=== PATIENT | female | born 1970 | race Caucasian/White ===

== ENCOUNTER 2023-02-19 07:22 | Outpatient (CLI) | payer OTHER, SELFPAY ==
--- NOTE | ~2023-02-19 | US_ITS ---
Limited Abdominal Sonogram: Real-time sonographic imaging of the right upper quadrant was performed. Clinical History: Pancreatitis Findings: The liver appears normal with no evidence of mass lesion or bile duct dilatation. Main por kori vein demonstrates normal direction of flow. The gallbladder is well distended, and appears normal with no evidence of gallstone or wall thickening. The common bile duct measures 4 mm. The visualize d pancreas, aorta, and IVC are unremarkable. Impression: No significant abnormality seen. Reviewed, dictated and finalized at location M. Impression: No significant abnormality seen.
== END 2023-02-19 07:23 | disposition home or self-care (01) ==
PROVIDERS: PCP Internal Medicine; Visit Provider Internal Medicine
DX: K85.90 Acute pancreatitis without necrosis or infection, unspecified (principal)
CPT/HCPCS: 76705

== ENCOUNTER 2023-12-17 10:03 | Outpatient (CLI) | payer BC, SELFPAY ==
--- NOTE | ~2023-12-17 | XR_ITS ---
Supine and upright views of the abdomen Clinical history: Kidney stones Findings: Bowel gas pattern is nonspecific. No evidence for obstruction or free air. No abnormal mass lesion or calcification is seen. Osseous structures are intact. Impression: No significant abnormality is seen. Reviewed, dictated and finalized at [facility]. AND [employer] Impression: No significant abnormality is seen.
== END 2023-12-17 10:04 | disposition home or self-care (01) ==
PROVIDERS: PCP Internal Medicine; Visit Provider Nurse Practitioner Family
DX: Z87.442 Personal history of urinary calculi (principal)
CPT/HCPCS: 74018

== ENCOUNTER 2024-01-28 16:57 | Outpatient (CLI) | payer BC, SELFPAY ==
--- NOTE | ~2024-01-28 | XR_ITS ---
Left Knee Technique: AP, lateral, and sunrise views were obtained. Clinical History: Pain Findings: No fracture or dislocation is seen. Osseous alignment is anatomic. Joint spaces are preserv ed without degenerative or erosive change. Soft tissues are unremarkable. No joint effusion is seen. Impression: Unremarkable left knee radiographs. Reviewed, dictated and finalized at location . INE GUNNER Impression: Unremarkable left knee radiographs.
== END 2024-01-28 16:58 | disposition home or self-care (01) ==
LOC: ANHIMG 16:58
PROVIDERS: PCP Internal Medicine; Visit Provider Orthopaedic Surgery
DX: M25.562 Pain in left knee (principal)
CPT/HCPCS: 73564

== ENCOUNTER 2025-01-28 09:48 | Outpatient (CLI) | payer OTHER, SELFPAY ==
--- NOTE | ~2025-01-28 | XR_ITS ---
XR abdomen/kub 1V Ordering provider: Gisela Rodriguez MD History: . Hx of kidney stones, KIDNEY STONE REMOVAL 04/2022 . Comparison: December 17, 2023 FINDINGS: BOWEL: Nonobstructive bowel gas pattern. ORGANOMEGALY: None. SIGNIFICANT PATHOLOGIC CALCIFICATIONS: None. OTHER: No free air is seen under the diaphragm. IMPRESSION: NO ACUTE ABDOMINAL FINDINGS. No definite stones seen. If still suspicious none contrast CT is advised. Reviewed, dictated and finalized at location A. ING COORDINATOR
--- OUTSIDE RECORDS SUMMARY | 2025-01-28 11:12 | XMS_ITS | Data Portability ---
Author Organization [facility] Address [address] [place] [address] Care Team Providers Care Wood Turner Name Role Phone JOVANNY KLEIN Primary Care Provider Unavailabl e Assessment Encounter Date Assessment Date Assessment LastModified by Organization Details LastModified Time 02/11/2024 02/11/2024 Try to get GLP-1 agent no contraindication walk is much as she can and caloric restriction. Blood pressure under good control keep hydrated for the history of renal stone consider going back on MetroGel for her rosacea rhinitis stable at this time obtain old records and see me in 4 months [email or web address] Not available 02/11/2024 23:14:39 06/10/2024 06/10/2024 gallbladder ultrasound morbid obesity healthy lifestyle care instructions medications we will continue I will see her back in 3 months consider dietary consult. I told her today because of her episodes of pancreatitis she is not a candidate for his bound Ozempic or any the GLP 1 agents at this time [email or web address] Not available 06/10/2024 21:18:16 2024 2024 he is to avoid a ll alcohol continue with her current medical strategies she will see me back in 4 months [email or web address] Not available 10/03/2024 22:14:22 12/16/2024 12/16/2024 continue current therapy focused on weight loss and decreasing processed food she was remained alcohol free and I have congratulated her on that blood work has been ordered as well as referrals and mammogram follow up with me in 4 months [email or web address] Not available 12/20/2024 16:55:30 Plan of Treatment Reminders Order Date Submit Date Provider Last Modified By Organization Details Last Modified Time Details Appointments ANY 15 2024 09:15A Nan Klein MD Not available Not available Not available Lab lipid panel, serum 2024 025 [facility], [address], [place], [address], 12/17/2024 08:22:54 CBC w/ auto diff 2024 025 [facility], [address], [place], [address], 12/17/2024 08:22:57 CMP, serum or plasma 2024 025 [facility], [address], [place], [address], 12/17/2024 08:22:56 noninva sive colorec kori cancer DNA + occult blood screeni ng, QL, stool 2023 024 [facility] (Cologuard Orders Only), [address], [address], [place], [address], 11/05/2024 21:28:20 HbA1c (hemogl obin A1c), blood 2023 024 [facility], [address], [place], [address], 02/12/2024 06:19:16 CMP, serum or plasma 2023 024 [facility], [address], [place], [address], 02/12/2024 06:19:16 CBC w/ auto diff 2023 024 [facility], [address], [place], [address], 02/12/2024 06:19:17 lipid panel, serum 2023 024 [facility], [address], [place], [address], 02/12/2024 06:19:15 TSH, ultra-s ensitiv e, serum 2023 024 [facility], [address], [place], [address], 02/12/2024 06:19:17 T3, free, serum or plasma 2023 024 [facility], [address], [place], [address], 02/12/2024 06:19:18 T4, free, serum 2023 024 [facility], [address], [place], [address], 02/12/2024 06:19:19 pap, IG + HPV, cervica l [address] [facility], [address], [address], [place], [address], 05/06/2018 14:11:53 FSH (follic le-stim ulating hormone ), serum 2017 018 [facility], [address], [place], [address], 05/01/2018 08:35:20 estradi ol, serum 2017 018 [facility], [address], [place], [address], 05/01/2018 08:35:21 TSH, ultra-s ensitiv e, serum 2017 018 [facility], [address], [place], [address], 05/01/2018 08:35:20 progest erone, serum 2017 018 [facility], [address], [place], [address], 05/01/2018 08:35:21 dhea-jack lfate, serum 2017 018 [facility] (Centralized Electronic Ordering - All Locations), Patient Can Go To The Location Of Their Choice, 05/01/2018 08:35:19 testost erone, total, serum 2017 018 [facility] (Centralized Electronic Ordering - All Locations), Patient Can Go To The Location Of Their Choice, 05/01/2018 08:35:19 HbA1c (hemogl obin A1c), blood 2017 018 [facility], [address], [address], [place], [address], 05/01/2018 08:35:18 CMP, serum or plasma 2017 018 [facility] (Centralized Electronic Ordering - All Locations), Patient Can Go To The Location Of Their Choice, 05/01/2018 08:35:17 lipid panel, serum 2017 018 [facility] (Centralized Electronic Ordering - All Locations), Patient Can Go To The Location Of Their Choice, 05/01/2018 08:35:18 Referral gynecol ogist referra l 2024 025 [facility]abel Baker (Ob), [address] [place] [address], [address], 01/27/2025 12:56:30 dermato logist referra l 2024 025 [facility], [address] [place] [address], [address], 01/27/2025 12:56:30 Procedures None recorde d. Surgeries None recorde d. Imaging MAMMO, screeni ng, digital , bilater al 2024 025 [facility] ([facility]), [address] [place], [address], 12/21/2024 09:35:28 US, abdomen 2023 024 [facility] ([facility]), [address] [place], [address], 06/18/2024 11:24:45 MAMMO, screeni lester, bilater al [email or web address] ([facility]), [address] [place], [address], 04/30/2018 17:32:06 Medication Orders Zepboun d 2.5 mg/0.5 mL subcuta neous pen injecto r 2023 024 [id number], [address] [place], [place], [id number], 06/10/2024 21:18:17 Calcium with Vitamin D 600 mg-10 mcg (400 unit) tablet 2017 018 [id number], [address] [place], [place], [id number], 02/11/2024 09:51:27 multivi tamin tablet 2017 018 [facility][id number], [address] [place], [place], [id number], 02/11/2024 09:51:33 norethi ndrone (contra ceptive ) 0.35 mg tablet 2017 018 [facility] #[id number], [address] [place], [place], [id number], 02/11/2024 09:51:44 nystati n 100,000 unit/gr am topical cream 2017 018 [id number] [address] [place], [place], [id number], 02/11/2024 09:51:47 Patient TargetsNo targets recorded. Patient Instructions Encounter Date Encounter Id Patient Instructions Last Modified By Organization Details Last Modified Time 04/30/2018 [id number] mammogram: about this test jo ann Not available 04/30/2018 17:00:08 learning about menopause [email or web address] Not available 04/30/2018 17:20:07 When You Want to Lose Weight: Care Instructions [email or web address] Not available 04/30/2018 16:42:09 06/10/2024 [id number] A healthy lifestyle: care instructions [email or web address] Not available 06/10/2024 13:12:46 12/16/2024 [id number] A healthy lifestyle: care instructions [email or web address] Not available 12/16/2024 15:05:24 Reason for Referral Law Tutor Referral for S kin lesion Referring Physician: Jovanny Klein, Internal Medicine, Encounter Date: 12/16/2024 Tower Foreman Referral for Gy necologic examination Referring Physician: Jovanny Klein, Internal Medicine, Encounter Date: 12/16/2024 Results Created Date Observation Date Name Description Value Unit Range Abnormal Flag Note LastModifiedBy Organization Detail LastModifiedTime 04/30/20 18 05/01/2018 CMP, serum or plasm a glucose 105 mg/dL 65-99 above high normal Not Available [facility] ([facility]) [address] [place], [address], 05/01/2018 08:35:17 04/30/20 18 05/01/2018 CMP, serum or plasm a BUN 14 mg/dL 6-24 Not Available [facility] ([facility]) [address] [place], [address], 05/01/2018 08:35:17 04/30/20 18 05/01/2018 CMP, serum or plasm a creatinine 0.94 mg/dL 0.57-1 .00 Not Available [facility] ([facility]) [address] [place], [address], 05/01/2018 08:35:17 04/30/20 18 05/01/2018 CMP, serum or plasm a eGFR if nonafricn AM 73 mL/mi n/1.7 3 >59 Not Available [facility] ([facility]) [address] [place], [address], 05/01/2018 08:35:17 04/30/20 18 05/01/2018 CMP, serum or plasm a eGFR if africn AM 84 mL/mi n/1.7 3 >59 Not Available [facility] ([facility]) [address] [place], [address], 05/01/2018 08:35:17 04/30/20 18 05/01/2018 CMP, serum or plasm a BUN/creatini ne ratio 15 9-23 Not Available [facility] ([facility]) [address] [place], [address], 05/01/2018 08:35:17 04/30/20 18 05/01/2018 CMP, serum or plasm a sodium 141 mmol/ L 134-14 4 Not Available [facility] ([facility]) [address] [place], [address], 05/01/2018 08:35:17 04/30/20 18 05/01/2018 CMP, serum or plasm a potassium 4.3 mmol/ L 3.5-5. 2 Not Available [facility] ([facility]) [address] [place], [address], 05/01/2018 08:35:17 04/30/20 18 05/01/2018 CMP, serum or plasm a chloride 102 mmol/ L 96-106 Not Available [facility] ([facility]) [address] [place], [address], 05/01/2018 08:35:17 04/30/20 18 05/01/2018 CMP, serum or plasm a carbon dioxide, total 26 mmol/ L Eff ectiv e May 05, 2018 Carbo n Dioxi de, Total refer ence inter narseen will be humphrey ing to: Age Male Femal e 0 days - 30 days 16 - 29 16 - 29 31 days - 1 year 15 - 25 15 - 25 2 years - 5 years 17 - 26 17 - 26 6 years - 12 years 19 - 27 19 - 27 >12 years 20 - 29 20 - 29 Not Available [facility] ([facility]) [address] [place], [address], 05/01/2018 08:35:17 04/30/20 18 05/01/2018 CMP, serum or plasm a calcium 9.2 mg/dL 8.7-10 .2 Not Available [facility] ([facility]) [address] [place], [address], 05/01/2018 08:35:17 04/30/2005/01/2018 CMP, serum or plasm a protein, total 7.1 g/dL 6.0-8. 5 Not Available [facility] ([facility]) [address] [place], [address], 05/01/2018 08:35:17 04/30/2005/01/2018 CMP, serum or plasm a albumin 4.3 g/dL 3.5-5. 5 Not Available [facility] ([facility]) [address] [place], [address], 05/01/2018 08:35:17 04/30/2005/01/2018 CMP, serum or plasm a globulin, total 2.8 g/dL 1.5-4. 5 Not Available [facility] ([facility]) [address] [place], [address], 05/01/2018 08:35:17 04/30/2005/01/2018 CMP, serum or plasm a A/G ratio 1.5 1.2-2. 2 Not Available [facility] ([facility]) [address] [place], [address], 05/01/2018 08:35:17 04/30/20 18 05/01/2018 CMP, serum or plasm a bilirubin, total 0.3 mg/dL 0.0-1. 2 Not Available [facility] ([facility]) [address] [place], [address], 05/01/2018 08:35:17 04/30/20 18 05/01/2018 CMP, serum or plasm a alkaline phosphatase 101 IU/L 39-117 Not Available [facility] ([facility]) [address] [place], [address], 05/01/2018 08:35:17 04/30/20 18 05/01/2018 CMP, serum or plasm a AST (SGOT) 22 IU/L 0-40 Not Available [facility] ([facility]) [address] [place], [address], 05/01/2018 08:35:17 04/30/20 18 05/01/2018 CMP, serum or plasm a ALT (SGPT) 19 IU/L 0-32 Not Available [facility] ([facility]) [address] [place], [address], 05/01/2018 08:35:17 04/30/20 18 05/01/2018 lipid panel , serum cholesterol, total 189 mg/dL 100-19 9 Not Available [facility] ([facility]) [address] [place], [address], 05/01/2018 08:35:17 04/30/20 18 05/01/2018 lipid panel , serum triglyceride s 172 mg/dL 0-149 above high normal Not Available [facility] ([facility]) [address] [place], [address], 05/01/2018 08:35:17 04/30/20 18 05/01/2018 lipid panel , serum HDL cholesterol 53 mg/dL >39 Not Available [facility] ([facility]) [address] [place], [address], 05/01/2018 08:35:17 04/30/20 18 05/01/2018 lipid panel , serum VLDL cholesterol lauryn 34 mg/dL 5-40 Not Available [facility] ([facility]) [address] [place], [address], 05/01/2018 08:35:17 04/30/20 18 05/01/2018 lipid panel , serum LDL cholesterol calc 102 mg/dL 0-99 above high normal Not Available [facility] ([facility]) [address] [place], [address], 05/01/2018 08:35:17 04/30/20 18 05/01/2018 lipid panel , serum comment: DISTRICT ASSOCIATE JUDGE Not Available [facility] ([facility]) [address] [place], [address], 05/01/2018 08:35:17 04/30/20 18 05/01/2018 lipid panel , serum LDL/HDL ratio 1.9 ratio 0.0-3. 2 LDL/H DL Ratio Men Women 1/2 Avg.R isk 1.0 1.5 Avg.R isk 3.6 3.2 2X Avg.R isk 6.2 5.0 3X Avg.R isk 8.0 6.1 Not Available [facility] ([facility]) [address] [place], [address], 05/01/2018 08:35:17 04/30/20 18 05/01/2018 HbA1c (hemo globi n A1c), blood hemoglobin A1C 5.4 % 4.8-5. 6 Pre-d iabet es: 5.7 - 6.4 Diabe pierce: >6.4 Glyce antonietta contr ol for adult s with diabe pierce: <7.0 Not Available [facility] ([facility]) [address] [place], [address], 05/01/2018 08:35:18 04/30/20 18 05/01/2018 dhea- sulfa te, serum DHEA-sulfate 229.7 ug/dL 41.2-2 43.7 Not Available [facility] ([facility]) [address] [place], [address], 05/01/2018 08:35:19 04/30/20 18 05/01/2018 testo stero ne, total , serum testosterone , serum 31 NG/dL 8-48 Not Available [facility] ([facility]) [address] [place], [address], 05/01/2018 08:35:19 04/30/2005/01/2018 TSH, ultra -sens itive , serum TSH 1.560 uIU/m L 0.450- 4.500 Not Available [facility] ([facility]) [address] [place], [address], 05/01/2018 08:35:20 04/30/2005/01/2018 FSH (foll icle- stimu latin g hormo ne), serum FSH 7.5 mIU/m L Adult Femal e: Folli cular phase 3.5 - 12.5 Ovula tion phase 4.7 - 21.5 Lutea l phase 1.7 - 7.7 Postm enopa usal 25.8 - 134.8 Not Available [facility] ([facility]) [address] [place], [address], 05/01/2018 08:35:20 04/30/2005/01/2018 estra diol, serum estradiol 68.2 pg/mL Adult Femal e: Folli cular phase 12.5 - 166.0 Ovula tion phase 85.8 - 498.0 Lutea l phase 43.8 - 211.0 Postm enopa usal <6.0 - 54.7 Pregn mando 1st trime ster 215.0 - >4300 .0 Girls (1-10 years ) 6.0 - 27.0 Perico ECLIA metho dolog y Not Available [facility] ([facility]) [address], [place], [address], 05/01/2018 08:35:21 04/30/20 18 05/01/2018 proge stero ne, serum progesterone 0.2 NG/mL Folli cular phase 0.1 - 0.9 Lutea l phase 1.8 - 23.9 Ovula tion phase 0.1 - 12.0 Pregn ant First trime ster 11.0 - 44.3 Secon d trime ster 25.4 - 83.3 Third trime ster 58.7 - 214.0 Postm enopa usal 0.0 - 0.1 Not Available [facility] ([facility]) [address], [place], [address], 05/01/2018 08:35:21 04/30/20 18 05/05/2018 pap, IG + HPV, cervi lauryn HPV aptima Negati ve negati ve This test detec ts fourt een high- risk HPV types (16/1 8/31/ 33/35 /39/4 5/ 51/52 /56/5 8/59/ 66/68 ) witho ut diffe renti ation . Not Available [facility] ([facility]) [address], [place], [address], 05/06/2018 14:11:53 04/30/20 18 05/06/2018 pap, IG + HPV, cervi lauryn diagnosis: Commen t NEGAT TOBY FOR INTRA EPITH ELIAL NEGRITA Soliz AND BERNADETTE KRAFT . THIS SPECI MEN WAS RESCR EENED PART OF OUR QUALI TY CONTR OL PROGR AM. Not Available [facility] ([facility]) [address], [place], [address], 05/06/2018 14:11:53 04/30/20 18 05/06/2018 pap, IG + HPV, cervi lauryn specimen adequacy: Commen t Satis facto ry for evalu ation . Endoc ervic al and/o r squam ous metap lasti c cells (endo cervi lauryn compo nent) are prese nt. Not Available [facility] ([facility]) [address], [place], [address], 05/06/2018 14:11:53 04/30/20 18 05/06/2018 pap, IG + HPV, cervi lauryn clinician provided ICD10: Landon joseph Z01.4 19 E28.2 N95.9 Not Available [facility] ([facility]) [address] [place], [address], 05/06/2018 14:11:53 04/30/20 18 05/06/2018 pap, IG + HPV, cervi lauryn performed by: Landon Mccoy , Cytot echno logis t (ASCP ) Not Available [facility] ([facility]) [address] [place], [address], 05/06/2018 14:11:53 04/30/20 18 05/06/2018 pap, IG + HPV, cervi lauryn QC reviewed by: Landon bonilla, Yadira visor y Cytot echno logis t (ASCP ) Not Available [facility] ([facility]) [address] [place], [address], 05/06/2018 14:11:53 04/30/20 18 05/06/2018 pap, IG + HPV, cervi lauryn . . Not Available [facility] ([facility]) [address] [place], [address], 05/06/2018 14:11:53 04/30/20 18 05/06/2018 pap, IG + HPV, cervi lauryn note: Landon joseph The Pap smear is a scree sal test desig roberto to aid in the detec tion of wes ligna nt and malig nant condi tions of the uteri ne cervi x. It is not a diagn ostic proce dure and shoul d not be used as the sole means of detec ting cervi lauryn cance r. Both false -posi tive and false -nega tive repor ts do occur . Not Available [facility] ([facility]) [address] [facility], [place], [address], 05/06/2018 14:11:53 04/30/20 18 05/06/2018 pap, IG + HPV, cervi lauryn test methodology: TNP The Thin Prep( R) Image r was unabl e to read this speci men. There fore a manua l revie w was perfo rmed. Not Available [facility] ([facility]) [address], [place], [address], 05/06/2018 14:11:53 05/10/20 21 05/10/2021 pap, IG + HR HPV Pap, thinprep,HPV negati ve Not Available Not Available 10:31:20 07/19/20 22 07/19/2022 CBC W Auto Diffe renti al panel - Blood mean platelet volume mean plate let volum e Not Available Not Available 01/27/2025 12:56:00 07/19/20 22 07/19/2022 CBC W Auto Diffe renti al panel - Blood white blood cells white blood cells Not Available Not Available 01/27/2025 12:56:00 07/19/20 22 07/19/2022 CBC W Auto Diffe renti al panel - Blood red blood cells red blood cells Not Available Not Available 01/27/2025 12:56:00 07/19/20 22 07/19/2022 CBC W Auto Diffe renti al panel - Blood hemoglobin hemog lobin Not Available Not Available 01/27/2025 12:56:00 07/19/20 22 07/19/2022 CBC W Auto Diffe renti al panel - Blood hematocrit hemat ocrit Not Available Not Available 01/27/2025 12:56:00 07/19/20 22 07/19/2022 CBC W Auto Diffe renti al panel - Blood mean red cell volume mean red cell volum e Not Available Not Available 01/27/2025 12:56:00 07/19/20 22 07/19/2022 CBC W Auto Diffe renti al panel - Blood mean red cell hemoglobin mean red cell hemog lobin Not Available Not Available 01/27/2025 12:56:00 07/19/20 22 07/19/2022 CBC W Auto Diffe renti al panel - Blood mean RBC HGB concentratio n mean RBC HGB yeimi ntrat ion Not Available Not Available 01/27/2025 12:56:00 07/19/20 22 07/19/2022 CBC W Auto Diffe renti al panel - Blood red cell distribution width red cell distr ibuti on width Not Available Not Available 01/27/2025 12:56:00 07/19/20 22 07/19/2022 CBC W Auto Diffe renti al panel - Blood platelets plate lets Not Available Not Available 01/27/2025 12:56:00 07/19/20 22 07/19/2022 CBC W Auto Diffe renti al panel - Blood neutrophils neutr ophil s Not Available Not Available 01/27/2025 12:56:00 07/19/20 22 07/19/2022 CBC W Auto Diffe renti al panel - Blood lymphocytes lymph ocyte s Not Available Not Available 01/27/2025 12:56:00 07/19/20 22 07/19/2022 CBC W Auto Diffe renti al panel - Blood monocytes monoc ytes Not Available Not Available 01/27/2025 12:56:00 07/19/20 22 07/19/2022 CBC W Auto Diffe renti al panel - Blood eosinophils high eosin ophil s Not Available Not Available 01/27/2025 12:56:00 07/19/20 22 07/19/2022 CBC W Auto Diffe renti al panel - Blood basophils basop hils Not Available Not Available 01/27/2025 12:56:00 07/19/20 22 07/19/2022 CBC W Auto Diffe renti al panel - Blood immature granulocytes immat ure granu locyt es Not Available Not Available 01/27/2025 12:56:00 07/19/20 22 07/19/2022 CBC W Auto Diffe renti al panel - Blood neutrophils, absolute count neutr ophil s, absol squaxin count Not Available Not Available 01/27/2025 12:56:00 07/19/20 22 07/19/2022 CBC W Auto Diffe renti al panel - Blood lymphocytes, absolute count lymph ocyte s, absol squaxin count Not Available Not Available 01/27/2025 12:56:00 07/19/20 22 07/19/2022 CBC W Auto Diffe renti al panel - Blood monocytes, absolute count monoc ytes, absol squaxin count Not Available Not Available 01/27/2025 12:56:00 07/19/20 22 07/19/2022 CBC W Auto Diffe renti al panel - Blood eosinophils, absolute count high eosin ophil s, absol squaxin count Not Available Not Available 01/27/2025 12:56:00 07/19/20 22 07/19/2022 CBC W Auto Diffe renti al panel - Blood basophils, absolute count basop hils, absol squaxin count Not Available Not Available 01/27/2025 12:56:00 07/19/20 22 07/19/2022 CBC W Auto Diffe renti al panel - Blood immature granulocytes ,absolute immat ure granu locyt es,ab solut e Not Available Not Available 01/27/2025 12:56:00 07/19/20 22 07/19/2022 CBC W Auto Diffe renti al panel - Blood nucleated red blood cells nucle ated red blood cells Not Available Not Available 01/27/2025 12:56:00 07/19/20 22 07/19/2022 CBC W Auto Diffe renti al panel - Blood NRBC# NRBC# Not Available Not Availa ble 01/27/2025 12:56:00 07/19/20 22 07/19/2022 Compr ehens toby metab olic 1999 panel - Serum or Plasm a carbon dioxide carbo n dioxi de Not Available Not Available 01/27/2025 12:55:59 07/19/20 22 07/19/2022 Compr ehens toby metab olic 2000 panel - Serum or Plasm a sodium sodiu m Not Available Not Available 01/27/2025 12:55:59 07/19/20 22 07/19/2022 Compr ehens toby metab olic 2000 panel - Serum or Plasm a potassium potas sium Not Available Not Available 01/27/2025 12:55:59 07/19/20 22 07/19/2022 Compr ehens toby metab olic 2000 panel - Serum or Plasm a chloride chlor kenisha Not Available Not Available 01/27/2025 12:55:59 07/19/20 22 07/19/2022 Compr ehens toby metab olic 1999 panel - Serum or Plasm a anion gap low anion gap Not Available Not Available 01/27/2025 12:55:59 07/19/20 22 07/19/2022 Compr ehens toby metab olic 2000 panel - Serum or Plasm a glucose gluco se Not Available Not Available 01/27/2025 12:55:59 07/19/20 22 07/19/2022 Compr ehens toby metab olic 2000 panel - Serum or Plasm a BUN BUN Not Available Not Availa ble 01/27/2025 12:55:59 07/19/20 22 07/19/2022 Compr ehens toby metab olic 2000 panel - Serum or Plasm a creatinine creat inine Not Available Not Available 01/27/2025 12:55:59 07/19/20 22 07/19/2022 Compr ehens toby metab olic 1999 panel - Serum or Plasm a GFR 55 GFR Not Available Not Availa ble 01/27/2025 12:55:59 07/19/20 22 07/19/2022 Compr ehens toby metab olic 2000 panel - Serum or Plasm a alkaline phosphatase alkal ine phosp hatas e Not Available Not Available 01/27/2025 12:55:59 07/19/20 22 07/19/2022 Compr ehens toby metab olic 2000 panel - Serum or Plasm a alanine aminotransfe rase nadia ne amino trans feras e Not Available Not Available 01/27/2025 12:55:59 07/19/20 22 07/19/2022 Compr ehens toby metab olic 2000 panel - Serum or Plasm a aspartate aminotransfe rase aspar poe amino trans feras e Not Available Not Available 01/27/2025 12:55:59 07/19/20 22 07/19/2022 Compr ehens toby metab olic 2000 panel - Serum or Plasm a bilirubin, total bilir ubin, total Not Available Not Available 01/27/2025 12:55:59 07/19/20 22 07/19/2022 Compr ehens toby metab olic 2000 panel - Serum or Plasm a calcium calci um Not Available Not Available 01/27/2025 12:55:59 07/19/20 07/19/2022 Compr ehens toby metab olic 1999 panel - Serum or Plasm a total protein total prote in Not Available Not Available 01/27/2025 12:55:59 07/19/20 22 07/19/2022 Compr ehens toby metab olic 1999 panel - Serum or Plasm a albumin album in Not Available Not Available 01/27/2025 12:55:59 07/19/20 22 07/19/2022 Compr ehens toby metab olic 1999 panel - Serum or Plasm a globulin globu nicole Not Available Not Available 01/27/2025 12:55:59 07/19/20 22 07/19/2022 Compr ehens toby metab olic 1999 panel - Serum or Plasm a A/G ratio A/G ratio Not Available Not Available 01/27/2025 12:55:59 07/19/20 22 07/19/2022 Lipid 1995 panel - Serum or Plasm a cholesterol in LDL [mass/volume ] in serum or plasma LDL carmen stero l, calcu lated Not Available Not Available 01/27/2025 12:55:59 07/19/20 22 07/19/2022 Lipid 1996 panel - Serum or Plasm a cholesterol high carmen stero l Not Available Not Available 01/27/2025 12:55:59 07/19/20 22 07/19/2022 Lipid 1996 panel - Serum or Plasm a triglyceride s high trigl yceri florence Not Available Not Available 01/27/2025 12:55:59 07/19/20 22 07/19/2022 Lipid 1996 panel - Serum or Plasm a HDL cholesterol HDL carmen stero l Not Available Not Available 01/27/2025 12:55:59 05/24/20 23 05/24/2023 Thyro tropi n [Unit s/vol ume] in Serum or Plasm a thyroid-stim ulating hormone thyro id-st imula ting hormo ne Not Available Not Available 01/27/2025 12:56:00 05/24/20 23 05/24/2023 Thyro xine (T4) free [Mass /volu me] in Serum or Plasm a free T4 free T4 Not Available Not Available 01/27/2025 12:56:00 05/24/20 23 05/24/2023 Triio dothy alton e (T3) Free [Mass /volu me] in Serum or Plasm a free T3 free T3 Not Available Not Available 01/27/2025 12:56:00 05/24/20 23 05/24/2023 Lipid 1995 panel - Serum or Plasm a cholesterol carmen stero l Not Available Not Available 01/27/2025 12:56:00 05/24/20 23 05/24/2023 Lipid 1995 panel - Serum or Plasm a triglyceride s trigl yceri florence Not Available Not Available 01/27/2025 12:56:00 05/24/20 23 05/24/2023 Lipid 1995 panel - Serum or Plasm a HDL cholesterol HDL carmen stero l Not Available Not Available 01/27/2025 12:56:00 05/24/20 23 05/24/2023 Lipid 1995 panel - Serum or Plasm a cholesterol in LDL [mass/volume ] in serum or plasma LDL carmen stero l, calcu lated Not Available Not Available 01/27/2025 12:56:00 05/24/20 23 05/24/2023 Compr ehens toby metab olic 1999 panel - Serum or Plasm a sodium sodiu m Not Available Not Available 01/27/2025 12:56:00 05/24/20 23 05/24/2023 Compr ehens toby metab olic 2000 panel - Serum or Plasm a potassium potas sium Not Available Not Available 01/27/2025 12:56:00 05/24/20 23 05/24/2023 Compr ehens toby metab olic 2000 panel - Serum or Plasm a chloride chlor kenisha Not Available Not Available 01/27/2025 12:56:00 05/24/20 23 05/24/2023 Compr ehens toby metab olic 1999 panel - Serum or Plasm a carbon dioxide carbo n dioxi de Not Available Not Available 01/27/2025 12:56:00 05/24/20 23 05/24/2023 Compr ehens toby metab olic 2000 panel - Serum or Plasm a anion gap low anion gap Not Available Not Available 01/27/2025 12:56:00 05/24/20 23 05/24/2023 Compr ehens toby metab olic 2000 panel - Serum or Plasm a glucose gluco se Not Available Not Available 01/27/2025 12:56:00 05/24/20 23 05/24/2023 Compr ehens toby metab olic 2000 panel - Serum or Plasm a BUN BUN Not Available Not Availa ble 01/27/2025 12:56:00 05/24/20 23 05/24/2023 Compr ehens toby metab olic 2000 panel - Serum or Plasm a creatinine creat inine Not Available Not Available 01/27/2025 12:56:00 05/24/20 23 05/24/2023 Compr ehens toby metab olic 2000 panel - Serum or Plasm a GFR >60 GFR Not Available Not Availa ble 01/27/2025 12:56:00 05/24/20 23 05/24/2023 Compr ehens toby metab olic 2000 panel - Serum or Plasm a alkaline phosphatase alkal ine phosp hatas e Not Available Not Available 01/27/2025 12:56:00 05/24/20 23 05/24/2023 Compr ehens toby metab olic 2000 panel - Serum or Plasm a alanine aminotransfe rase nadia ne amino trans feras e Not Available Not Available 01/27/2025 12:56:00 05/24/20 23 05/24/2023 Compr ehens toby metab olic 2000 panel - Serum or Plasm a aspartate aminotransfe rase aspar poe amino trans feras e Not Available Not Available 01/27/2025 12:56:00 05/24/20 23 05/24/2023 Compr ehens toby metab olic 2000 panel - Serum or Plasm a bilirubin, total bilir ubin, total Not Available Not Available 01/27/2025 12:56:00 05/24/20 23 05/24/2023 Compr ehens toby metab olic 2000 panel - Serum or Plasm a calcium calci um Not Available Not Available 01/27/2025 12:56:00 05/24/20 23 05/24/2023 Compr ehens toby metab olic 2000 panel - Serum or Plasm a total protein total prote in Not Available Not Available 01/27/2025 12:56:00 05/24/20 23 05/24/2023 Compr ehens toby metab olic 2000 panel - Serum or Plasm a albumin album in Not Available Not Available 01/27/2025 12:56:00 05/24/20 23 05/24/2023 Compr ehens toby metab olic 1999 panel - Serum or Plasm a globulin globu nicole Not Available Not Available 01/27/2025 12:56:00 05/24/20 23 05/24/2023 Compr ehens toby metab olic 1999 panel - Serum or Plasm a A/G ratio A/G ratio Not Available Not Available 01/27/2025 12:56:00 05/24/20 23 05/24/2023 CBC W Auto Diffe renti al panel - Blood white blood cells white blood cells Not Available Not Available 01/27/2025 12:56:00 05/24/20 23 05/24/2023 CBC W Auto Diffe renti al panel - Blood red blood cells red blood cells Not Available Not Available 01/27/2025 12:56:00 05/24/20 23 05/24/2023 CBC W Auto Diffe renti al panel - Blood hemoglobin high hemog lobin Not Available Not Available 01/27/2025 12:56:00 05/24/20 23 05/24/2023 CBC W Auto Diffe renti al panel - Blood hematocrit high hemat ocrit Not Available Not Available 01/27/2025 12:56:00 05/24/20 23 05/24/2023 CBC W Auto Diffe renti al panel - Blood mean red cell volume mean red cell volum e Not Available Not Available 01/27/2025 12:56:00 05/24/20 23 05/24/2023 CBC W Auto Diffe renti al panel - Blood mean red cell hemoglobin mean red cell hemog lobin Not Available Not Available 01/27/2025 12:56:00 05/24/20 23 05/24/2023 CBC W Auto Diffe renti al panel - Blood mean RBC HGB concentratio n mean RBC HGB yeimi ntrat ion Not Available Not Available 01/27/2025 12:56:00 05/24/20 23 05/24/2023 CBC W Auto Diffe renti al panel - Blood red cell distribution width red cell distr ibuti on width Not Available Not Available 01/27/2025 12:56:00 05/24/20 23 05/24/2023 CBC W Auto Diffe renti al panel - Blood platelets plate lets Not Available Not Available 01/27/2025 12:56:00 05/24/20 23 05/24/2023 CBC W Auto Diffe renti al panel - Blood mean platelet volume mean plate let volum e Not Available Not Available 01/27/2025 12:56:00 05/24/20 23 05/24/2023 CBC W Auto Diffe renti al panel - Blood neutrophils neutr ophil s Not Available Not Available 01/27/2025 12:56:00 05/24/20 23 05/24/2023 CBC W Auto Diffe renti al panel - Blood lymphocytes lymph ocyte s Not Available Not Available 01/27/2025 12:56:00 05/24/20 23 05/24/2023 CBC W Auto Diffe renti al panel - Blood monocytes monoc ytes Not Available Not Available 01/27/2025 12:56:00 05/24/20 23 05/24/2023 CBC W Auto Diffe renti al panel - Blood eosinophils eosin ophil s Not Available Not Available 01/27/2025 12:56:00 05/24/20 23 05/24/2023 CBC W Auto Diffe renti al panel - Blood basophils basop hils Not Available Not Available 01/27/2025 12:56:00 05/24/20 23 05/24/2023 CBC W Auto Diffe renti al panel - Blood immature granulocytes immat ure granu locyt es Not Available Not Available 01/27/2025 12:56:00 05/24/20 23 05/24/2023 CBC W Auto Diffe renti al panel - Blood neutrophils, absolute count neutr ophil s, absol squaxin count Not Available Not Available 01/27/2025 12:56:00 05/24/20 23 05/24/2023 CBC W Auto Diffe renti al panel - Blood lymphocytes, absolute count lymph ocyte s, absol squaxin count Not Available Not Available 01/27/2025 12:56:00 05/24/20 23 05/24/2023 CBC W Auto Diffe renti al panel - Blood monocytes, absolute count monoc ytes, absol squaxin count Not Available Not Available 01/27/2025 12:56:00 05/24/20 23 05/24/2023 CBC W Auto Diffe renti al panel - Blood eosinophils, absolute count eosin ophil s, absol squaxin count Not Available Not Available 01/27/2025 12:56:00 05/24/20 23 05/24/2023 CBC W Auto Diffe renti al panel - Blood basophils, absolute count basop hils, absol squaxin count Not Available Not Available 01/27/2025 12:56:00 05/24/20 23 05/24/2023 CBC W Auto Diffe renti al panel - Blood immature granulocytes ,absolute immat ure granu locyt es,ab solut e Not Available Not Available 01/27/2025 12:56:00 05/24/20 23 05/24/2023 CBC W Auto Diffe renti al panel - Blood nucleated red blood cells nucle ated red blood cells Not Available Not Available 01/27/2025 12:56:00 05/24/20 23 05/24/2023 CBC W Auto Diffe renti al panel - Blood NRBC# NRBC# Not Available Not Availa ble 01/27/2025 12:56:00 02/11/20 24 02/12/2024 LIPID PANEL cholesterol, total 183 mg/dL 100-19 9 Not Available [facility] ([facility]) [address] [facility], [place], [address], 02/12/2024 06:19:15 02/11/20 24 02/12/2024 LIPID PANEL triglyceride s 110 mg/dL 0-149 Not Available [facility] ([facility]) [address] [facility], [place], [address], 02/12/2024 06:19:15 02/11/20 24 02/12/2024 LIPID PANEL HDL cholesterol 66 mg/dL >39 Not Available [facility] ([facility]) [address] [facility], [place], [address], 02/12/2024 06:19:15 02/11/20 24 02/12/2024 LIPID PANEL VLDL cholesterol lauryn 19 mg/dL 5-40 Not Available [facility] ([facility]) [address] [facility], [place], [address], 02/12/2024 06:19:15 02/11/20 24 02/12/2024 LIPID PANEL LDL chol calc ([facility]) 98 mg/dL 0-99 Not Available [facility] ([facility]) [address] [place], [address], 02/12/2024 06:19:15 02/11/20 24 02/12/2024 COMP. METAB OLIC PANEL (14) glucose 97 mg/dL 70-99 Not Available [facility] ([facility]) [address] [place], [address], 02/12/2024 06:19:16 02/11/20 24 02/12/2024 COMP. METAB OLIC PANEL (14) BUN 19 mg/dL 6-24 Not Available [facility] ([facility]) [address] [place], [address], 02/12/2024 06:19:16 02/11/20 24 02/12/2024 COMP. METAB OLIC PANEL (14) creatinine 0.79 mg/dL 0.57-1 .00 Not Available [facility] ([facility]) [address] [place], [address], 02/12/2024 06:19:16 02/11/20 24 02/12/2024 COMP. METAB OLIC PANEL (14) eGFR 90 mL/mi n/1.7 3 >59 Not Available [facility] ([facility]) [address] [place], [address], 02/12/2024 06:19:16 02/11/20 24 02/12/2024 COMP. METAB OLIC PANEL (14) BUN/creatini ne ratio 24 9-23 above high normal Not Available [facility] ([facility]) [address] [place], [address], 02/12/2024 06:19:16 02/11/20 24 02/12/2024 COMP. METAB OLIC PANEL (14) sodium 143 mmol/ L 134-14 4 Not Available [facility] ([facility]) [address] [place], [address], 02/12/2024 06:19:16 02/11/20 24 02/12/2024 COMP. METAB OLIC PANEL (14) potassium 4.5 mmol/ L 3.5-5. 2 Not Available [facility] ([facility]) [address] [place], [address], 02/12/2024 06:19:16 02/11/20 24 02/12/2024 COMP. METAB OLIC PANEL (14) chloride 106 mmol/ L 96-106 Not Available [facility] ([facility]) [address] [place], [address], 02/12/2024 06:19:16 02/11/20 24 02/12/2024 COMP. METAB OLIC PANEL (14) carbon dioxide, total 21 mmol/ L 20-29 Not Available [facility] ([facility]) [address] [facility] [place], [address], 02/12/2024 06:19:16 02/11/20 24 02/12/2024 COMP. METAB OLIC PANEL (14) calcium 9.7 mg/dL 8.7-10 .2 Not Available [facility] ([facility]) [address] [place], [address], 02/12/2024 06:19:16 02/11/20 24 02/12/2024 COMP. METAB OLIC PANEL (14) protein, total 6.9 g/dL 6.0-8. 5 Not Available [facility] ([facility]) [address] [facility] [place], [address], 02/12/2024 06:19:16 02/11/20 24 02/12/2024 COMP. METAB OLIC PANEL (14) albumin 4.0 g/dL 3.8-4. 9 Not Available [facility] ([facility]) [address] [facility] [place], [address], 02/12/2024 06:19:16 02/11/20 24 02/12/2024 COMP. METAB OLIC PANEL (14) globulin, total 2.9 g/dL 1.5-4. 5 Not Available [facility] ([facility]) [address] [place], [address], 02/12/2024 06:19:16 02/11/20 24 02/12/2024 COMP. METAB OLIC PANEL (14) A/G ratio 1.4 1.2-2. 2 Not Available [facility] ([facility]) [address] [place], [address], 02/12/2024 06:19:16 02/11/20 24 02/12/2024 COMP. METAB OLIC PANEL (14) bilirubin, total 0.5 mg/dL 0.0-1. 2 Not Available [facility] ([facility]) [address] [facility] [place], [address], 02/12/2024 06:19:16 02/11/20 24 02/12/2024 COMP. METAB OLIC PANEL (14) alkaline phosphatase 113 IU/L 44-121 Not Available [facility] ([facility]) [address] [facility] [place], [address], 02/12/2024 06:19:16 02/11/20 24 02/12/2024 COMP. METAB OLIC PANEL (14) AST (SGOT) 26 IU/L 0-40 Not Available [facility] ([facility]) [address] [facility] [place], [address], 02/12/2024 06:19:16 02/11/20 24 02/12/2024 COMP. METAB OLIC PANEL (14) ALT (SGPT) 23 IU/L 0-32 Not Available [facility] ([facility]) [address] [facility] [place], [address], 02/12/2024 06:19:16 03/19/20 24 02/11/2024 HEMOG LOBIN A1C hemoglobin A1C 5.5 % 4.8-5. 6 Predi abete s: 5.7 - 6.4 Diabe pierce: >6.4 Glyce antonietta contr ol for adult s with diabe pierce: <7.0 Not Available [facility] ([facility]) [address] [place], [address], 02/12/2024 06:19:16 02/11/20 24 02/12/2024 TSH TSH 1.770 uIU/m L 0.450- 4.500 Not Available [facility] ([facility]) [address] [place], [address], 02/12/2024 06:19:17 02/11/20 24 02/11/2024 CBC WITH DIFFE RENTI AL/PL ATELE T WBC 7.7 x10e3 /uL 3.4-10 .8 Not Available [facility] ([facility]) [address] [place], [address], 02/12/2024 06:19:17 02/11/20 24 02/11/2024 CBC WITH DIFFE RENTI AL/PL ATELE T RBC 4.48 x10e6 /uL 3.77-5 .28 Not Available [facility] ([facility]) [address] [place], [address], 02/12/2024 06:19:17 02/11/20 24 02/11/2024 CBC WITH DIFFE RENTI AL/PL ATELE T hemoglobin 14.6 g/dL 11.1-1 5.9 Not Available [facility] ([facility]) [address] [place], [address], 02/12/2024 06:19:17 02/11/20 24 02/11/2024 CBC WITH DIFFE RENTI AL/PL ATELE T hematocrit 43.1 % 34.0-4 6.6 Not Available [facility] ([facility]) [address] [facility], [place], [address], 02/12/2024 06:19:17 02/11/20 24 02/11/2024 CBC WITH DIFFE RENTI AL/PL ATELE T MCV 96 fL 79-97 Not Available [facility] ([facility]) [address] [facility], [place], [address], 02/12/2024 06:19:17 02/11/20 24 02/11/2024 CBC WITH DIFFE RENTI AL/PL ATELE T MCH 32.6 pg 26.6-3 3.0 Not Available [facility] ([facility]) [address] [facility], [place], [address], 02/12/2024 06:19:17 02/11/20 24 02/11/2024 CBC WITH DIFFE RENTI AL/PL ATELE T MCHC 33.9 g/dL 31.5-3 5.7 Not Available [facility] ([facility]) [address] [facility], [place], [address], 02/12/2024 06:19:17 02/11/20 24 02/11/2024 CBC WITH DIFFE RENTI AL/PL ATELE T RDW 13.0 % 11.7-1 5.4 Not Available [facility] ([facility]) [address] [facility], [place], [address], 02/12/2024 06:19:17 02/11/20 24 02/11/2024 CBC WITH DIFFE RENTI AL/PL ATELE T platelets 230 x10e3 /uL 150-45 0 Not Available [facility] ([facility]) [address] [facility], [place], [address], 02/12/2024 06:19:17 02/11/20 24 02/11/2024 CBC WITH DIFFE RENTI AL/PL ATELE T neutrophils 66 % notest ab. Not Available [facility] ([facility]) [address] [facility], [place], [address], 02/12/2024 06:19:17 02/11/20 24 02/11/2024 CBC WITH DIFFE RENTI AL/PL ATELE T lymphs 21 % notest ab. Not Available [facility] ([facility]) [address] [facility], [place], [address], 02/12/2024 06:19:17 02/11/20 24 02/11/2024 CBC WITH DIFFE RENTI AL/PL ATELE T monocytes 9 % notest ab. Not Available [facility] ([facility]) [address] [facility], [place], [address], 02/12/2024 06:19:17 02/11/20 24 02/11/2024 CBC WITH DIFFE RENTI AL/PL ATELE T eos 3 % notest ab. Not Available [facility] ([facility]) [address] [place], [address], 02/12/2024 06:19:17 02/11/20 24 02/11/2024 CBC WITH DIFFE RENTI AL/PL ATELE T basos 1 % notest ab. Not Available [facility] ([facility]) [address] [facility], [place], [address], 02/12/2024 06:19:17 02/11/20 24 02/11/2024 CBC WITH DIFFE RENTI AL/PL ATELE T neutrophils (absolute) 5.1 x10e3 /uL 1.4-7. 0 Not Available [facility] ([facility]) [address] [place], [address], 02/12/2024 06:19:17 02/11/20 24 02/11/2024 CBC WITH DIFFE RENTI AL/PL ATELE T lymphs (absolute) 1.7 x10e3 /uL 0.7-3. 1 Not Available [facility] ([facility]) [address] [place], [address], 02/12/2024 06:19:17 02/11/20 24 02/11/2024 CBC WITH DIFFE RENTI AL/PL ATELE T monocytes(ab solute) 0.7 x10e3 /uL 0.1-0. 9 Not Available [facility] ([facility]) [address] [facility], [place], [address], 02/12/2024 06:19:17 02/11/20 24 02/11/2024 CBC WITH DIFFE RENTI AL/PL ATELE T eos (absolute) 0.2 x10e3 /uL 0.0-0. 4 Not Available [facility] ([facility]) [address] [place], [address], 02/12/2024 06:19:17 02/11/20 24 02/11/2024 CBC WITH DIFFE RENTI AL/PL ATELE T baso (absolute) 0.0 x10e3 /uL 0.0-0. 2 Not Available [facility] ([facility]) [address] [facility], [place], [address], 02/12/2024 06:19:17 02/11/20 24 02/11/2024 CBC WITH DIFFE RENTI AL/PL ATELE T immature granulocytes 0 % notest ab. Not Available [facility] ([facility]) [address] [facility], [place], [address], 02/12/2024 06:19:17 02/11/20 24 02/11/2024 CBC WITH DIFFE RENTI AL/PL ATELE T immature grans (abs) 0.0 x10e3 /uL 0.0-0. 1 Not Available [facility] ([facility]) [address] [place], [address], 02/12/2024 06:19:17 02/11/20 24 02/12/2024 TRIIO DOTHY ALTON E (T3), FREE triiodothyro nine (T3), free 2.8 pg/mL 2.0-4. 4 Not Available [facility] ([facility]) [address], [place], [address], 02/12/2024 06:19:18 02/11/20 24 02/12/2024 T4,FR EE(DI RECT) T4,free(dire ct) 1.34 NG/dL 0.82-1 .77 Not Available [facility] ([facility]) [address], [place], [address], 02/12/2024 06:19:19 10/31/20 24 10/31/2024 COLOG UARD cologuard result reportable NEGATI VE negati ve normal NEGAT TOBY TEST RESUL T. A negat toby Colog uard resul t indic ates a low likel ihood that a color ectal cance r (CRC) or advan scar adeno ma (slade [place] us polyp s with more advan scar pre-m align ant featu res) is prese nt. The [facility] emergency department e that a perso n with a negat toby Colog uard test has a color ectal cance r is less than 1 in 1500 (nega tive predi ctive value >99.9 %) or has an advan scar adeno ma is less than 5.3% (nega tive predi ctive value 94.7% ). These data are based on a prosp ectiv e cross -sect ional study of 10,00 0 indiv idual s at [place] [facility] risk for color ectal cance r who were scree roberto with both Colog uard and colon oscop y. (Trevor Parson et al, N Engl J Med 2014; 370(1 4):12 86-12 97) The sophy l value (refe rence range ) for this assay is negat toby. COLOG UARD RE-SC REENI NG RECOM MENDA TION: Perio dic color ectal cance r scree sal is an impor tant part of preve ntive healt hcare for asymp tomat ic indiv idual s at [facility] risk for color ectal cance r. Follo wing a negat toby Colog uard resul t, the Ameri can Cance r Socie ty and U.S. Multi -Soci ety Task Force scree sal guide lines recom mend a Colog uard re-sc adam batista inter nasreen of 3 years . Refer ences : Ameri can Cance r Socie ty Guide line for Color ectal Cance r Scree sal: https ://michelle w.can cer.o rg/ca ncer/ colon -rect al-ca ncer/ detec tion- diagn osis- stagi ng/ac s-rec ommen datio ns.ht ml.; Otto DK, Ruchi patterson CR, Almita ParksK, Color ectal Cance r Scree sal: Recom menda tions for Physi cians and Patie nts from the U.S. Multi -Soci ety Task Force on Color ectal Cance r Scree sal , Am Kasey mancilla rolog y 2017; 112:1 016-1 030. TEST DESCR IPTIO N: [place] site algor ithmi c reuben sis of stool DNA-b daljit calderon with hemog lobin immun oassa y. Quant itati ve value s of indiv idual bioma rkers are not repor table and are not assoc iated with indiv idual bioma rker resul t refer ence range s. Colog uard is inten ded for color ectal cance r scree sal of adult s of eithe r sex, 45 years or older , who are at [facility] for color ectal cance r (CRC) . Colog uard has been appro percy for use by the U.[place]. FDA. The perfo rmanc e of Colog uard was estab lishe d in a cross secti onal study of [facility] adult s aged 50-84 . Colog uard perfo rmanc e in patie nts ages 45 to 49 years was estim ated by deborah-g roup reuben sis of near- age group s. Colon oscop ies perfo rmed for a posit toby resul t may find as the most clini ro signi fican t lesio n: color ectal cance r [4.0% ], advan scar adeno ma (incl uding sessi le kylie renee polyp s great er than or equal to 1cm diame ter) [20%] or non- advan scar adeno ma [31%] ; or no color ectal neopl oscar [45%] . These estim ates are deriv ed from a prosp ectiv e cross -sect ional marcial huang study of 0 indiv idual s at [facility] risk for color ectal cance r who were scree roberto with both Colog uard and colon oscop y. (Trevor Parson et al, N Engl J Med 2014; 370(1 4):12 86-12 97.) Colog uard may produ ce a false negat toby or false posit toby resul t (no color ectal cance r or preca ncero us polyp prese nt at colon oscop y follo w up). A negat toby Colog uard test resul t does not guara ntee the absen ce of CRC or advan scar adeno ma (pre- cance r). The curre nt Colog uard sherleye sal inter nasreen is every 3 years . (Amer ican Cance r Socie ty and U.S. Multi -Soci ety Task Force ). Colog uard perfo rmanc e data in a 0 patie nt pivot al study using colon oscop y as the refer ence metho d can be [facility]es [facility] locat ion: www.e xactl abs.c om/re henrry . Addit ional descr iptio n of the Colog uard test proce ss, warni ngs and preca ution s can be found at www.c ologu ayush.c om. Not Available [employer] (Cologuard Orders Only) [address], [place], [address], 11/05/2024 21:28:20 12/16/19 25 12/17/2024 LIPID PANEL cholesterol, total 211 mg/dL 100-19 9 above high normal Not Available [facility] ([facility]) [address], [place], [address], 12/17/2024 08:22:54 12/16/19 25 12/17/2024 LIPID PANEL triglyceride s 109 mg/dL 0-149 Not Available [facility] ([facility]) [address] [place], [address], 12/17/2024 08:22:54 12/16/19 25 12/17/2024 LIPID PANEL HDL cholesterol 60 mg/dL >39 Not Available [facility] ([facility]) [address] [place], [address], 12/17/2024 08:22:54 12/16/19 25 12/17/2024 LIPID PANEL VLDL cholesterol lauryn 19 mg/dL 5-40 Not Available [facility] ([facility]) [address] [place], [address], 12/17/2024 08:22:54 12/16/19 25 12/17/2024 LIPID PANEL LDL chol calc ([facility]) 132 mg/dL 0-99 above high normal Not Available [facility] ([facility]) [address] [place], [address], 12/17/2024 08:22:54 12/16/19 25 12/17/2024 COMP. METAB OLIC PANEL (14) glucose 95 mg/dL 70-99 Not Available [facility] ([facility]) [address] [place], [address], 12/17/2024 08:22:55 12/16/19 25 12/17/2024 COMP. METAB OLIC PANEL (14) BUN 12 mg/dL 6-24 Not Available [facility] ([facility]) [address] [place], [address], 12/17/2024 08:22:55 12/16/19 25 12/17/2024 COMP. METAB OLIC PANEL (14) creatinine 0.86 mg/dL 0.57-1 .00 Not Available [facility] ([facility]) [address] [place], [address], 12/17/2024 08:22:55 12/16/19 25 12/17/2024 COMP. METAB OLIC PANEL (14) eGFR 81 mL/mi n/1.7 3 >59 Not Available [facility] ([facility]) [address] [facility], [place], [address], 12/17/2024 08:22:55 12/16/19 25 12/17/2024 COMP. METAB OLIC PANEL (14) BUN/creatini ne ratio 14 9-23 Not Available [facility] ([facility]) [address] [facility], [place], [address], 12/17/2024 08:22:55 12/16/19 25 12/17/2024 COMP. METAB OLIC PANEL (14) sodium 141 mmol/ L 134-14 4 Not Available [facility] ([facility]) [address] [facility], [place], [address], 12/17/2024 08:22:55 12/16/19 25 12/17/2024 COMP. METAB OLIC PANEL (14) potassium 5.0 mmol/ L 3.5-5. 2 Not Available [facility] ([facility]) [address] [facility], [place], [address], 12/17/2024 08:22:55 12/16/19 25 12/17/2024 COMP. METAB OLIC PANEL (14) chloride 102 mmol/ L 96-106 Not Available [facility] ([facility]) [address] [place], [address], 12/17/2024 08:22:55 12/16/19 25 12/17/2024 COMP. METAB OLIC PANEL (14) carbon dioxide, total 25 mmol/ L 20-29 Not Available [facility] ([facility]) [address] [facility], [place], [address], 12/17/2024 08:22:55 12/16/19 25 12/17/2024 COMP. METAB OLIC PANEL (14) calcium 9.9 mg/dL 8.7-10 .2 Not Available [facility] ([facility]) [address] [facility] [place], [address], 12/17/2024 08:22:55 12/16/19 25 12/17/2024 COMP. METAB OLIC PANEL (14) protein, total 7.2 g/dL 6.0-8. 5 Not Available [facility] ([facility]) [address] [facility] [place], [address], 12/17/2024 08:22:55 12/16/19 25 12/17/2024 COMP. METAB OLIC PANEL (14) albumin 4.2 g/dL 3.8-4. 9 Not Available [facility] ([facility] [address] [facility] [place], [address], 12/17/2024 08:22:55 12/16/19 25 12/17/2024 COMP. METAB OLIC PANEL (14) globulin, total 3.0 g/dL 1.5-4. 5 Not Available [facility] ([facility]) [address] [facility] [place], [address], 12/17/2024 08:22:55 12/16/19 25 12/17/2024 COMP. METAB OLIC PANEL (14) bilirubin, total 0.3 mg/dL 0.0-1. 2 Not Available [facility] ([facility]) [address] [place], [address], 12/17/2024 08:22:55 12/16/19 25 12/17/2024 COMP. METAB OLIC PANEL (14) alkaline phosphatase 107 IU/L 44-121 Not Available [facility] ([facility]) [address] [place], [address], 12/17/2024 08:22:55 12/16/19 25 12/17/2024 COMP. METAB OLIC PANEL (14) AST (SGOT) 21 IU/L 0-40 Not Available [facility] ([facility]) [address] [facility], [place], [address], 12/17/2024 08:22:55 12/16/19 25 12/17/2024 COMP. METAB OLIC PANEL (14) ALT (SGPT) 22 IU/L 0-32 Not Available [facility] ([facility]) [address] [facility], [place], [address], 12/17/2024 08:22:55 12/16/19 25 12/17/2024 CBC WITH DIFFE RENTI AL/PL ATELE T WBC 7.1 x10e3 /uL 3.4-10 .8 Not Available [facility] ([facility]) [address] [facility], [place], [address], 12/17/2024 08:22:57 12/16/19 25 12/17/2024 CBC WITH DIFFE RENTI AL/PL ATELE T RBC 5.10 x10e6 /uL 3.77-5 .28 Not Available [facility] ([facility]) [address] [facility], [place], [address], 12/17/2024 08:22:57 12/16/19 25 12/17/2024 CBC WITH DIFFE RENTI AL/PL ATELE T hemoglobin 15.9 g/dL 11.1-1 5.9 Not Available [facility] ([facility]) [address] [facility], [place], [address], 12/17/2024 08:22:57 12/16/19 25 12/17/2024 CBC WITH DIFFE RENTI AL/PL ATELE T hematocrit 46.5 % 34.0-4 6.6 Not Available [facility] ([facility]) [address] [place], [address], 12/17/2024 08:22:57 12/16/19 25 12/17/2024 CBC WITH DIFFE RENTI AL/PL ATELE T MCV 91 fL 79-97 Not Available [facility] ([facility]) [address] [facility], [place], [address], 12/17/2024 08:22:57 12/16/19 25 12/17/2024 CBC WITH DIFFE RENTI AL/PL ATELE T MCH 31.2 pg 26.6-3 3.0 Not Available [facility] ([facility]) [address] [facility], [place], [address], 12/17/2024 08:22:57 12/16/19 25 12/17/2024 CBC WITH DIFFE RENTI AL/PL ATELE T MCHC 34.2 g/dL 31.5-3 5.7 Not Available [facility] ([facility]) [address] [facility], [place], [address], 12/17/2024 08:22:57 12/16/19 25 12/17/2024 CBC WITH DIFFE RENTI AL/PL ATELE T RDW 12.5 % 11.7-1 5.4 Not Available [facility] ([facility]) [address] [place], [address], 12/17/2024 08:22:57 12/16/19 25 12/17/2024 CBC WITH DIFFE RENTI AL/PL ATELE T platelets 284 x10e3 /uL 150-45 0 Not Available [facility] ([facility]) [address] [place], [address], 12/17/2024 08:22:57 12/16/19 25 12/17/2024 CBC WITH DIFFE RENTI AL/PL ATELE T neutrophils 62 % notest ab. Not Available [facility] ([facility]) [address] [place], [address], 12/17/2024 08:22:57 12/16/19 25 12/17/2024 CBC WITH DIFFE RENTI AL/PL ATELE T lymphs 24 % notest ab. Not Available [facility] ([facility]) [address] [place], [address], 12/17/2024 08:22:57 12/16/19 25 12/17/2024 CBC WITH DIFFE RENTI AL/PL ATELE T monocytes 10 % notest ab. Not Available [facility] ([facility]) [address] [facility], [place], [address], 12/17/2024 08:22:57 12/16/19 25 12/17/2024 CBC WITH DIFFE RENTI AL/PL ATELE T eos 3 % notest ab. Not Available [facility] ([facility]) [address] [facility], [place], [address], 12/17/2024 08:22:57 12/16/19 25 12/17/2024 CBC WITH DIFFE RENTI AL/PL ATELE T basos 1 % notest ab. Not Available [facility] ([facility]) [address] [facility], [place], [address], 12/17/2024 08:22:57 12/16/19 25 12/17/2024 CBC WITH DIFFE RENTI AL/PL ATELE T neutrophils (absolute) 4.3 x10e3 /uL 1.4-7. 0 Not Available [facility] ([facility]) [address] [place], [address], 12/17/2024 08:22:57 12/16/19 25 12/17/2024 CBC WITH DIFFE RENTI AL/PL ATELE T lymphs (absolute) 1.7 x10e3 /uL 0.7-3. 1 Not Available [facility] ([facility]) [address] [place], [address], 12/17/2024 08:22:57 12/16/19 25 12/17/2024 CBC WITH DIFFE RENTI AL/PL ATELE T monocytes(ab solute) 0.7 x10e3 /uL 0.1-0. 9 Not Available [facility] ([facility]) [address] [facility], [place], [address], 12/17/2024 08:22:57 12/16/19 25 12/17/2024 CBC WITH DIFFE RENTI AL/PL ATELE T eos (absolute) 0.2 x10e3 /uL 0.0-0. 4 Not Available [facility] ([facility]) [address] [facility], [place], [address], 12/17/2024 08:22:57 12/16/19 25 12/17/2024 CBC WITH DIFFE RENTI AL/PL ATELE T baso (absolute) 0.0 x10e3 /uL 0.0-0. 2 Not Available [facility] ([facility]) [address] [facility], [place], [address], 12/17/2024 08:22:57 12/16/19 25 12/17/2024 CBC WITH DIFFE RENTI AL/PL ATELE T immature granulocytes 0 % notest ab. Not Available [facility] ([facility]) [address] [facility], [place], [address], 12/17/2024 08:22:57 12/16/19 25 12/17/2024 CBC WITH DIFFE RENTI AL/PL ATELE T immature grans (abs) 0.0 x10e3 /uL 0.0-0. 1 Not Available [facility] ([facility]) [address] [facility], [place], [address], 12/17/2024 08:22:57 05/13/20 24 05/13/2024 CT, abdom en + pelvi s, w/ contr ast No observ ation record ed. [facility] [address] [place], [address], 05/15/2024 12:23:35 05/24/20 24 05/23/2024 CT, abdom en + pelvi s, w/ contr ast No observ ation record ed. [facility] [address] [place], [address], 05/29/2024 13:48:21 06/18/20 24 06/18/2024 US, abdom en No observ ation record ed. TERRY [facility] [address] [place], [address], 06/25/2024 14:12:30 08/24/20 24 08/24/2024 CT, abdom en + pelvi s, w/ contr ast No observ ation record ed. [email or web address] [facility] [address] [place], [address], 08/25/2024 11:35:53 12/21/19 25 12/21/2024 MAMMO , scree sal, digit al, bilat eral No observ ation record ed. [email or web address] [facility] [address] [place], [address], 01/04/2025 09:42:13 Result Notes None recorded. Problems Name Problem SNOMED Code Status Onset Date Resolution Date Notes Provider Name and Address Organization Details Recorded Time Abdominal pain 92264414 Active 2023 Robyn Arriaga [place] null, [place] - [facility] 4 10:23:23 Essential hypertension 27517249 Active 2023 Robyn Arriaga [place], [place] [facility] 4 10:23:23 Rosacea 645864697 Active 2024 Jovanny Klein MD Attn: Keira pham,[address] [place], [address], [place] - [facility] 5 16:54:00 Hyperlipidemia 17981037 Active 2024 Jovanny Klein MD Attn: Keira pham,[address] [place], [address], [place] [facility] 5 16:54:06 Chronic rhinitis 35955703 Active 2024 Jovanny Klein MD Attn: Keira pham,[address] [facility], [place], [address], [place] [facility] 5 16:55:39 Morbid obesity 485094510 Active Robert Ashford RN BSN null, [place] - [facility] 5 10:29:03 Polycystic ovaries Active James Viveros MD Attn: Accountin g,[address] [facility], [place], [address], [facility] - [facility] 5 16:20:36 Irregular periods 57634729 Active Robert Ashford RN BSN null, [place] - [facility] 5 10:29:03 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 Procedures Surgical History Date Name Laterality Status Provider Name and Address Organization Details Recorded Time 04/30/20 18 Date of Last Pap Smear completed KEMI Keen [facility] 04/30/2018 16:27:23 03/25/20 17 Knee arthroscopy/surge ry completed KEMI Keen [facility] 04/30/2018 16:32:12 03/20/20 16 Most Recent Mammogram completed KEMI Keen [facility] 04/30/2018 16:27:44 11/25/19 12 Endometrial Ablation completed KEMI Daniels [facility] 03/08/2015 16:59:27 11/25/19 04 Breast Surgery completed KEMI Daniels 03/08/2015 16:59:27 11/25/19 03 Other completed KEMI Daniels [facility] 03/08/2015 16:59:27 11/25/19 00 Tubal Ligation completed Dunia KEMI Vivas [facility] 03/08/2015 16:59:27 11/25/18 76 Tonsillectomy completed Dunia KEMI Vivas [facility] 03/08/2015 16:59:27 Imaging Results Imaging Date Name Status LastModified by Organiz ation Details LastModified Time 05/13/2024 CT, abdomen + pelvis, w/ contrast completed [facility] [address] [place], [address], 05/15/2024 12:23:35 05/23/2024 CT, abdomen + pelvis, w/ contrast completed [facility] [address] [place], [address], 05/29/2024 13:48:21 06/18/2024 [facility] [address] [place], [address], 06/25/2024 14:12:30 08/24/2024 CT, abdomen + pelvis, w/ contrast completed [email or web address] [facility] [address] [place], [address], 08/25/2024 11:35:53 12/21/2024 MAMMO, screening, digital, bilateral completed [email or web address] [facility] [address] [place], [address], 01/04/2025 09:42:13 Procedure Notes None recorded. Medical Equipment None Reported. Allergies No known drug allergies Medications Name Sig Start Date Stop Date Status Note LastModified by Organization Details LastModified Time multivita min tablet Take 1 tablet every day by oral route. 02/10 completed Not Available Not Available Not Available azithromy dann 250 mg tablet TAKE 2 TABLETS BY MOUTH FOR 1 DAY THEN TAKE 1 TABLET BY MOUTH DAILY FOR 4 DAYS active Not Available Not Available No t Available ibuprofen 800 mg tablet 04/30 completed Not Available Not Available Not Available hydrocodo ne 5 mg-acetam inophen 325 mg tablet TAKE 1 TABLET BY MOUTH EVERY 6 HOURS NEEDED FOR PAIN active Not Available Not Available No t Available ondansetr on HCl 4 mg tablet TAKE 1 TABLET BY MOUTH EVERY 8 HOURS 12/20 completed Not Available Not Available Not Available Debrox 6.5 % ear drops Instill 5 drops twice a day by otic route for 4 days. 04/30 completed Not Available Not Available Not Available naproxen 250 mg tablet Take 1 tablet every day by oral route as needed. 02/10 completed For arthriti s Not Available Not Available Not Available sulfameth oxazole 800 mg-trimet hoprim 160 mg tablet 05/24 completed Not Available Not Available Not Available pantopraz ole 40 mg tablet,de layed release TAKE 1 TABLET BY MOUTH EVERY DAY 2024 active Not Available Not Available Not Avai lable simvastat in 20 mg tablet TAKE 1 TABLET BY MOUTH EVERY DAY 02/10 completed Not Available Not Available Not Available metformin 1,000 mg tablet TAKE 1 TABLET BY MOUTH TWICE DAILY 04/30 completed Not Available Not Available Not Available nystatin 100,000 unit/gram topical cream APPLY TO THE AFFECTED AREA(S) BY TOPICAL ROUTE 2 TIMES PER DAY 02/10 completed Not Available Not Available Not Available lisinopri l 10 mg tablet TAKE 1 TABLET BY MOUTH DAILY active Not Available Not Available No t Available monteluka st 10 mg tablet TAKE 1 TABLET BY MOUTH EVERY DAY active Not Available Not Available No t Available albuterol sulfate HFA 90 mcg/actua tion aerosol inhaler INHALE 2 PUFFS BY MOUTH EVERY 4 HOURS active Not Available Not Available No t Available norethind carla (contrace ptive) 0.35 mg tablet Take 1 tablet every day by oral route. 02/10 completed Not Available Not Available Not Available metronida zole 1 % topical gel active Not Available Not Available Not Available Calcium with Vitamin D 600 mg-10 mcg (400 unit) tablet Take 1 tablet twice a day by oral route. 02/10 completed Not Available Not Available Not Available Paxlovid 300 mg (150 mg x 2)-100 mg tablets in a dose pack TK 2 NIRMATRE LVIR TS AND 1 RITONAVI R T TOGETHER PO TWICE DAILY FOR 5 DAYS 02/10 completed Not Available Not Available Not Available Vitals Date Recorded Body weight Body mass index (BMI) Body height Systolic blood pressure Diastolic blood pressure Provider Name and Address Organization Details Last Updated DateTime 04/30/2018 369034.5 7 g 48.7 kg/m2 157.48 cm 136 mm[Hg] 88 mm[Hg] Ginette Blanca MA [facility] 8 16:35:32 Date Recorded Body height Body mass index (BMI) Body weight Oxygen saturation Oxygen saturation in Arterial blood by Pulse oximetry Heart rate Systolic blood pressure Diastolic blood pressure Provider Name and Address Organization Details Last Updated DateTime 4 157.48 cm 46.8 kg/m2 981278. 65 g 97 % 97 % 72 /min 124 mm[Hg] 85 mm[Hg] Ambrosio William MA [facility] 4 09:59:10 Date Recorded Body height Body mass index (BMI) Body weight Heart rate Oxygen saturation Oxygen saturation in Arterial blood by Pulse oximetry Systolic blood pressure Diastolic blood pressure Provider Name and Address Organization Details Last Updated DateTime 4 157.48 cm 44.9 kg/m2 024790. 65 g 73 /min 96 % 96 % 122 mm[Hg] 80 mm[Hg] Jenniffer Pena MA [facility] 4 09:48:56 Date Recorded Body height Body mass index (BMI) Body weight Heart rate Oxygen saturation Oxygen saturation in Arterial blood by Pulse oximetry Systolic blood pressure Diastolic blood pressure Provider Name and Address Organization Details Last Updated DateTime 4 157.48 cm 45.5 kg/m2 061901. 5 g 77 /min 97 % 97 % 128 mm[Hg] 80 mm[Hg] Ginette Moffett MA [facility] 4 10:03:56 Date Recorded Body height Body mass index (BMI) Body weight Heart rate Oxygen saturation Oxygen saturation in Arterial blood by Pulse oximetry Systolic blood pressure Diastolic blood pressure Provider Name and Address Organization Details Last Updated DateTime 5 157.48 cm 46.4 kg/m2 892300. 74 g 69 /min 96 % 96 % 126 mm[Hg] 86 mm[Hg] Kelly Beverly MA [place] - [facility] 12:21:18 Social History Question Answer Notes LastModified by Organizat ion Details LastModified Time Tobacco Smoking Status Never Smoker KEMI Daniels, [place] - [facility] 03/08/2015 16:59:26 Do You Have An Advance Directive? No Information not available 04/30/2018 What Is Your Level Of Alcohol Consumption? Occasional Information not available 04/30/2018 Are You Blind Or Do You Have Difficulty Seeing? No Information not available 02/11/2024 Is Blood Transfusion Acceptable In An Emergency? Yes Information not available 04/30/2018 What Is Your Level Of Caffeine Consumption? Moderate 1 Cup A Day Information not available 02/11/2024 How Much Tobacco Do You Chew? None Information not available 04/30/2018 In The 14 Days Before Symptom Onset, Have You Had Close Contact With A Laboratory-confir med COVID-19 While That Case Was Ill? No Information not available 12/16/2024 In The 14 Days Before Symptom Onset, Have You Had Close Contact With A Person Who Is Under Investigation For COVID-19 While That Person Was Ill? No Information not available 12/16/2024 Have You Been To An Area Known To Be High Risk For COVID-19? No Information not available 12/16/2024 Are You Currently Employed? Yes Information not available 04/30/2018 Are You Deaf Or Do You Have Serious Difficulty Hearing? No Information not available 02/11/2024 What Type Of Diet Are You Following? REGULAR Information not available 04/30/2018 Which Illicit Or Recreational Drugs Have You Used? None Information not available 04/30/2018 Education 4 Year College Informatio n not available 04/30/2018 What Is Your Occupation? [employer] Information not available 02/11/2024 What Was The Date Of Your Most Recent Tobacco Screening? 12/16/2024 Information not available 12/16/2024 How Many Children Do You Have? 2 Information not available 04/30/2018 Performs Monthly Self-breast Exam? Yes Information no t available 04/30/2018 Do You Use Protection During Sex? No Information not available 04/30/2018 What Is Your Relationship Status? Information not available 04/30/2018 Do You Use Your Seat Belt Or Car Seat Routinely? Yes Information not available 02/11/2024 Seat Belts Used Routinely Yes Information not available 04/30/2018 Are You Sexually Active? Yes Information not available 04/30/2018 Do You Have Smoke And Carbon Monoxide Detectors In Your Home? Yes Information not available 02/11/2024 General Stress Level Medium Information not available 04/30/2018 Do You Feel Stressed (tense, Restless, Nervous, Or Anxious, Or Unable To Sleep At Night)? [id number] Information not available 02/11/2024 Do You Use Any Illicit Or Recreational Drugs? No Information not available 02/11/2024 Do You Use Sunscreen Routinely? Yes Pt States Only On Face Information not available 04/30/2018 Has Tobacco Cessation Counseling Been Provided? No Information not available 02/11/2024 Do You Or Have You Ever Used Any Other Forms Of Tobacco Or Nicotine? No Information not available 02/11/2024 Sex: Female Functional Status Question Answer Note LastModified by Organizat ion Details LastModified Time Are you able to care for yourself? Yes Information not available 02/11/2024 What is your exercise level? Occasional Information not available 04/30/2018 Mental Status None recorded. Family History Relationship Description Onset Age of this Age Resolved Age Notes LastModified by Organization Details LastModified Time Maternal Grandmother Kidney disease 66 [email or web address] Not available 2014 10:30:49 Maternal Grandmother Diabetes mellitus mringor Not available 2014 10:30:49 Maternal Grandmother Hypertensive disorder mringor Not available 2014 10:30:49 Father Heart disease CVA mringor Not available 2014 10:30:49 Paternal Grandmother Heart disease mringor Not available 2014 10:30:49 Mother Pancreatitis mringor Not availa ble 05/24/2015 10:30:49 Medical History Condition Response Coronary Artery Disease N Other N Atrial Fibrillation N High Blood Pressure Y Breast Cancer N Lung Disease N Depression N COPD N Blood Clots N Breast Problem N Anesthesia Complications N Headaches/Migraines N Anxiety Disorder N Muscle, Joint, or Bone Problems N Arthritis N Infertility N Polyps N Acid Reflux (GERD) N Cancer N Stroke N Endometriosis N Liver Disease N Fibromyalgia N Headaches N Kidney Disease N Heart Problems N Thyroid Problems N Kidney or Bladder Problems Y GI Problems N Acne N Eating Disorder N Skin Problems N Anemia N Heart Attack (ND) N Diabetes N Ovarian Cancer N Blood Transfusions N Seizures/Epilepsy N Abuse/Domestic Violence N Asthma N Allergies N Hepatitis N Heart Disease N Pre-Eclampsia N Hypertension N Heart Failure N Osteoporosis N Gynecological History Statement/Question Response Abnormal Pap N On BCP's at Conception? N HPV Vaccine N Most Recent Mammogram 03/20/2016 Age at Menarche 14 Current Control Method Tubal Ligat ion Age at First Child 22 Frequency of Cycle (Q days) Sexually Active? Y Menses Monthly N Date of Last Pap Smear 04/30/2018 Sexual Problems? Y LMP Unknown Desired Control Method Other Obstetrics History GPAL:G 2 P 2 0 0 2 Type Value Multiple Births 0 Full Term 2 Induced 0 Spontaneous 0 Premature 0 Living 2 Ectopics 0 Total 2 Immunizations Vaccine Type Date Status Note Provider Nam e and Address Organization Details Recorded Time Influenza, split virus, quadrivalent, preservative 9 completed Kelly Beverly [place] null, [place] [facility] 12/16/2024 09:41:10 COVID-19, mRNA, LNP-S, PF, 100 mcg/0.5mL dose or 50 mcg/0.25mL dose 1 completed Kelly Beverly [place], [place] [facility] 12/16/2024 09:41:10 COVID-19, mRNA, LNP-S, PF, 100 mcg/0.5mL dose or 50 mcg/0.25mL dose 1 completed Kelly [place] [facility] 12/16/2024 09:41:10 COVID-19, mRNA, LNP-S, PF, 100 mcg/0.5mL dose or 50 mcg/0.25mL dose 1 completed [place]EMI [place] [facility] 12/16/2024 09:41:10 Influenza, high-dose, trivalent, PF 5 [place] [facility] 12/16/2024 09:41:10 Influenza, split virus, trivalent, preservative 3 [place] [facility] 12/16/2024 09:41:10 Td (adult), 2 Lf tetanus toxoid, preservative free, adsorbed 2 completed [place] [facility] 12/16/2024 09:41:10 pneumococcal polysaccharide PPV23 5 completed Not Available [facility] 12/12/2019 02:29:46 Tdap 5 completed Not Available [facility] 12/12/2019 02:45:32 pneumococcal polysaccharide PPV23 5 completed Jovanny Klein MD Attn: Accounting[address] [place], [address], [place] [facility] 12/20/2024 16:52:42 Past Encounters Encounter ID Performer Location Encounter Start Date Encounter Closed Date Diagnosis/Indication Diagnosis SNOMED-CT Code Diagnosis ICD10 Code Diagnosis Note [id number] Olivia ([employer]) [address] [place] [id number] 03/08/2015 16:00:34 03/08/2015 19:47:45 Morbid obesity 072408716 Polycystic ovaries 29545252 Irregular periods 54296025 Pt is s/p Novasure procedure and states that she had no menstrual period for approximat shayne 1.5 years after procedure. She is now having heavy periods with which she uses 36 pads/perio d. She is experienci ng polyuria as well as pelvic pain and pressure. She denies dyspareuni a but states she is experienci ng spotting 1 day after coitus. [id number] Lloyd Baker ([facility] [facility]) [address] [place] [id number] 04/20/2015 15:28:35 04/21/2015 09:28:49 Morbid obesity 304745803 Irregular periods 08667036 Pt is s/p Novasure procedure and states that she had no menstrual period for approximat shayne 1.5 years after procedure. She is now having heavy periods with which she uses 36 pads/perio d. She is experienci ng polyuria as well as pelvic pain and pressure. She denies dyspareuni a but states she is experienci ng spotting 1 day after coitus. Polycystic ovaries 80389295 Screening mammography 84629004 [id number] [facility] (Adult [facility]) [address] [place] [id number] 0 05/24/2015 10:10:25 05/24/2015 11:30:47 General examination of patient 336434043 44 y/o WF who presents to this office as a new patient Disorder o f lipid metabolism 188953446 History of pneumonia 558138554 CXR report from [facility] Repeat CXR to document resolution Overweight 165012784 Impacted cerumen 35896217 [id number] February KEMI Jay (Adult Med) [address] [place] [id number] 0 07/29/2015 16:02:30 07/29/2015 17:40:14 Polycystic ovaries 03687427 On Metformin Overweight 062235712 She has lost 29 lbs Her labs and CXR were all reviewed [id number] Lloyd Baker ([employer]) [address] [place] [id number] 04/14/2018 15:30:42 04/15/2018 17:57:47 [id number] Lloyd Baker ([employer]) [address] [place] [id number] 04/30/2018 15:33:26 04/30/2018 17:32:05 Gynecologic examination 24817219 Z01.419 Screening mammography 24 962480 Z12.31 Morbid obesity 397759148 E66.01 Perimenopa usal disorder 311004700 N95.9 Candidiasis of skin 4988 3006 B37.2 Polycystic ovaries 45938 008 E28.2 [id number] MD Olivia Whiting (Adult Med) [address] [place] [id number] 0 02/11/2024 09:38:36 02/11/2024 10:24:11 Essential hypertension 20219396 I10 Hyperlipidemia 04305046 E78.5 Obesity 145392387 E66.9 Overweight 811591680 E66 .3 Kidney stone 67005546 N2 0.0 [id number] MD Olivia Whiting (Adult Med) [address] [place] [id number] 0 06/10/2024 09:38:51 06/10/2024 10:24:35 Morbid obesity 854550646 E66.01 Essential hypertension 51125974 I10 Abdominal pain 54801397 R10.9 [id number] Jovanny Klein MD [facility] ([facility]ult [facility]) [address] [place] [id number] 0 2024 09:54:17 2024 10:39:40 Screening for malignant neoplasm of colon 042869849 Z12.11 Essential hypertension 63378086 I10 Disorder o f lipid metabolism 477053170 E78.9 [id number] Jovanny Klein MD [facility] (Adult Med) [address] [place] [id number] 0 12/16/2024 12:02:45 12/16/2024 12:45:37 Body mass index 40+ - severely obese 636356019 Z68.42 Morbid obesity 565757615 E66.01 Essential hypertension 44133408 I10 Screening mammography 24 872246 Z12.31 Skin lesion 59532043 L98 .9 Gynecologi c examination 36023149 Z01.419 Administra tion of pneumococcal vaccine 39563281 Z23 Rosacea 491599760 L71.9 Hyperlipidemia 42560100 E78.5 Health Concerns Section Related Observation LastModified by Organization Detai ls LastModified Time None Recorded Concern Status LastModified by Organization Details LastModified Time None Recorded Advance Directives Directive N: Payers Encounter Date Sequence Insurance Name Policy Number Policy Gunderson Covered Member ID Gunderson Member ID Guarantor Name 04/30/2018 1 [facility] [id number] Milagros Clark [id number] Milagros Clark 02/11/2024 2 [place] [id number] Milagros Clark [id number] Milagros Clark 06/10/2024 2 [place] [id number] Milagros Clark [id number] Milagros Clark 2024 2 [place] [id number] Milagros Clark [id number] Milagros Clark 2024 2 [place] [id number] Oh Clark [id number] Milagros Clark 12/16/2024 2 [place] [id number] Milagros Clark [id number] Milagros Clark 12/16/2024 1 [employer] - CHOICE (POS II) [id number] Oh Clark [id number] Milagros Clark Notes Date Note Type Note Provider Name and Address Organization Details Recorded Time 04/30/2018 text/html Annual GYNReport ed bypatient.History:no gynecologic complaints Menstrual cycle:Normal menses Urinary symptoms:No hematuria; No incontinence Vulva:No genital lesion Vagina:Normal vaginal discharge Breast:No breast pain; No breast lump; No nipple discharge Current Contraception:Tubal ligation Sexual complaints:No sexual complaints; No pain during intercourse; Normal libido Menopausal Symptoms:No menopausal symptoms; Normal vaginal lubrication Psychological symptoms:No depression; No anxiety; No PMDD Preventive measures:Encourage self breast examination; Encourage regular exercise; Encourage no tobacco use; Encourage regular mammograms starting age 40; Followed with Q3 year pap smear and high risk HPV typing; Needs to schedule mammogram 47y CF presents for occ therapist annual exam and also irregular periods after intercourse and loss of libido. Lloyd ingram, [facility] 05/01/2018 06:11:46 02/11/2024 text/html Hypertension no headache or dizziness rhinitis seems to be doing okay hyperlipidemia try to follow low-fat diet obesity trouble losing weight some knee pain following with Ortho Jovanny Klein MD Attn: [address] [place], [address], [facility] 02/11/2024 23:15:46 06/10/2024 text/html here for follow up of a couple of medical problems she was in the hospital for pancreatitis states that she is not drinking any alcohol had a CT scan did not show any gallstones sometimes some nausea no vomiting trouble losing weight blood pressure has been running okay Jovanny Klein MD Attn: [address]ing[address] , [place], [address], [place] [facility] 06/10/2024 21:18:36 2024 text/html some epigastric pain ER nonspecific findings on CT scan and blood work she has been doing better hypertension no headache or dizziness montelukast helping out on the rhinitis pantoprazole seems to be helping now with some epigastric discomfort Jovanny Klein MD Attn: Accounting[address], [place], [address], [place] [facility] 10/03/2024 22:15:32 12/16/2024 text/html hyperpigmented lesion on her face needs to see derm needs gynecology referral also a mammogram and a pneumococcal vaccine obesity she is not doing anything to lose weight hypertension blood pressure could do a little bit better on the diastolic side history of pancreatitis presumed secondary to alcohol she has stopped drinking. GERD no nausea no vomiting rhinitis stable on the Singulair rosacea control Jovanny Klein MD Attn: [address] , [place], [address], [place] - [facility] 12/20/2024 16:56:08 OBGyn Episode Ob Episode Information Episode Created Date Number of Fetuses Patient Bloodtype Patient rh Status Prepregnancy Weight lbs Domestic Partner Domestic Partner Phone Father Name Community Service Coordinator Status 10/03/20 24 1 DELETED Fetus Data First Name Last Name Admitted to NICU Weight (g) Sex Living Outcome Pediatric Complications Fetus ID Race Codes Race Delivery Type [id number] Faisal Calculation Initial Faisal Date Initial Exam Date Initial Exam Provider Initial Ultrasound Date Last Menstrual Period Date Ultra Sound Weeks Gestation 10/03/2024 0 Eighteen To Twenty Week Faisal Update Ultra Sound Date Fundal Height At Umbil Quickening Date Ultra Sound Latest Weeks Gestation Final Faisal Confirmed By Final Faisal Confirmed Date Final Faisal Date Ultra Sound Latest Days Gestation 0 0 Menstrual History Last Menstrual Date Menses Monthly On Bcp Conception Prior Menses Frequency Hcg Plus Date Menarche Onset Age Delivery Information Delivery Date Delivery Type Labor Anesthesia Weeks Gestation Incision Type Labor Labor Length Hrs Delivered By Post Complications Tubal Sterilization Discharge Date Comments Discharge Information Feeding Method Contraceptive Method Maternal HG B and HCT Levels
--- OUTSIDE RECORDS SUMMARY | 2025-01-28 11:12 | XMS_ITS | Patient Health Summary ---
Author Organization [facility] Address [address] [place] [address] Care Team Providers Care Heel Curver Name Role Phone Efren Klein MD Primary Care Provider Ravindra Almanzar MD Unavailable [phone] Note from [facility],non-owned Affiliates and Associated Physician Practices is amultiple site organization consisting of ambulatory clinics and hospital sitesin [place], [place], [place] and [place]. This disclosure is being madepursuant to the Care Everywhere program and may not contain all information available regarding this patient. Last updated 18.[facility] Allergies No known active allergies Medications * Be aware that medications may not be up to date on this document. Alwaysverify current medications with the patient. * metFORMIN (GLUCOPHAGE) 1000 MG tablet Take 1,000 mg by mouth 2 times daily with morning and evening meal * simvastatin (ZOCOR) 40 MG tablet Take 40 mg by mouth at bedtime * oxyCODONE-acetaminophen (PERCOCET) 5-325 MG tablet(Started 06/08/2016) Take 1 Tab by mouth every 4 hours as needed for Pain Social History Tobacco Use Types Packs/Day Years Used Date Smoking Tobacco: Never Smokeless Tobacco: Never Alcohol Use Standard Drinks/Week Comments Yes 0 (1 standard drink = 0.6 oz pur e alcohol) Sex and Gender Information Value Date Recorded Sex Assigned at Not on file Gender Identity Not on file Sexual Orientation Not on file Last Filed Vital Signs Vital Sign Reading Time Taken Comments Blood Pressure 128/88 10/23/2017 5:00 PM BURGLAR ALARM ASSEMBLER Pulse 72 10/23/2017 5:00 PM BURGLAR ALARM ASSEMBLER Temperature 36.3 C (97.3 F) 10/23/2017 5:00 PM BURGLAR ALARM ASSEMBLER Respiratory Rate 16 10/23/2017 5:00 PM BURGLAR ALARM ASSEMBLER Oxygen Saturation 96% 10/23/2017 5:00 PM BURGLAR ALARM ASSEMBLER Inhaled Oxygen Concentration - - Weight 113.4 kg (250 lb) 10/23/2017 5:00 PM BURGLAR ALARM ASSEMBLER Height 157.5 cm (5' 2 ) 10/23/2017 5:00 PM BURGLAR ALARM ASSEMBLER Body Mass Index 45.73 10/23/2017 5:00 PM BURGLAR ALARM ASSEMBLER Procedures * XR KNEE LEFT 4VW OR MORE(Performed 06/08/2016) Performed for Knee injury, left, initial encounter Results * XR KNEE 4+ VW LEFT (06/08/2016 5:20 PM CDT) Anatomical Region Laterality Modality Lower Extremity Radiographic Natalie ging 06/08/2016 5:23 PM CDT Narrative 06/08/2016 5:23 PM CDT Left knee 4 view History: Injury There is no evidence of fracture or dislocation or joint effusion Procedure Note Curt Gonzalez MD - 06/08/2016 Left knee 4 view History: Injury There is no evidence of fracture or dislocation or joint effusion Melvin Calvert DO DIAGNOSTIC IMAGING O [facility] Care Teams Heel Curver Relationship Specialty Start Date End Date Efren Klein MD PCP - General Internal Medicine 10/23/17 Ravindra Almanzar MD Internal Medicine 10/23/17
--- OUTSIDE RECORDS SUMMARY | 2025-01-28 11:12 | XMS_ITS | Referral Summary ---
Author Organization [facility] Address [address] [place] [address] Care Team Providers Care Pin Ball Machine Mechanic Name Role Phone Efren Klein MD Primary Care Provider [phone] Ravindra Almanzar MD Unavailable [phone] Source Comments [facility],non-owned Affiliates and Associated Physician Practices is amultiple site organization consisting of ambulatory clinics and hospital sitesin [place], [place], [place] and [place]. This disclosure is being madepursuant to the Care Everywhere program and may not contain all information available regarding this patient. Last updated 18.[facility] for; to (do) Centers Allergies No known active allergies Medications * Be aware that medications may not be up to date on this document. Alwaysverify current medications with the patient. Medication Sig Dispensed Refills Start Date End Date Status metFORMIN (GLUCOPHAGE) 1000 MG tablet Take 1,000 mg by mouth 2 times daily with morning and evening meal Active simvastatin (ZOCOR) 40 MG tablet Take 40 mg by mouth at bedtime Active oxyCODONE-acetaminophe n (PERCOCET) 5-325 MG tablet Take 1 Tab by mouth every 4 hours as needed for Pain 20 Tab 0 06/08/2016 Active Social History Tobacco Use Types Packs/Day Years [...] Comments Blood Pressure 128/88 10/23/2017 5:00 PM CLINICAL PROGRAM COORDINATOR Pulse 72 10/23/2017 5:00 PM CLINICAL PROGRAM COORDINATOR Temperature 36.3 C (97.3 F) 10/23/2017 5:00 PM CLINICAL PROGRAM COORDINATOR Respiratory Rate 16 10/23/2017 5:00 PM CLINICAL PROGRAM COORDINATOR Oxygen Saturation 96% 10/23/2017 5:00 PM CLINICAL PROGRAM COORDINATOR Inhaled Oxygen Concentration - - Weight 113.4 kg (250 lb) 10/23/2017 5:00 PM CLINICAL PROGRAM COORDINATOR Height 157.5 cm (5' 2 ) 10/23/2017 5:00 PM CLINICAL PROGRAM COORDINATOR Body Mass Index 45.73 10/23/2017 5:00 PM CLINICAL PROGRAM COORDINATOR Plan of Treatment Not on file Care Teams Pin Ball Machine Mechanic Relationship Specialty Start Date End Date Efren Klein MD PCP - General Internal Medicine 10/23/17 Ravindra Almanzar MD Internal Medicine 10/23/17
--- OUTSIDE RECORDS SUMMARY | 2025-01-28 11:12 | XMS_ITS | Clinical Summary ---
Author Organization [facility] [employer] Address [address] [place] [address] Care Team Providers Care Cold Reduction Roller Name Role Phone Efren Klein MD Primary Care Provider [phone] Ravindra Almanzar MD Unavailable [phone] [facility],non-owned Affiliates and Associated Physician Practices is amultiple site organization consisting of ambulatory clinics and hospital sitesin [place], [place], [place] and [place]. This disclosure is being madepursuant to the Care Everywhere program and may not contain all information available regarding this patient. Last updated 18.[facility] [employer] Allergies No known active allergies Medications * [...] Comments Blood Pressure 128/88 10/23/2017 5:00 PM GLUING CREW LEADER Pulse 72 10/23/2017 5:00 PM GLUING CREW LEADER Temperature 36.3 C (97.3 F) 10/23/2017 5:00 PM GLUING CREW LEADER Respiratory Rate 16 10/23/2017 5:00 PM GLUING CREW LEADER Oxygen Saturation 96% 10/23/2017 5:00 PM GLUING CREW LEADER Inhaled Oxygen Concentration - - Weight 113.4 kg (250 lb) 10/23/2017 5:00 PM GLUING CREW LEADER Height 157.5 cm (5' 2 ) 10/23/2017 5:00 PM GLUING CREW LEADER Body Mass Index 45.73 10/23/2017 5:00 PM GLUING CREW LEADER Plan of Treatment Health Maintenance Due Date Last Done Comments COLOGUARD (AGES 45-75) - COL ON CA SCREENING 1971 COLON MONITORING 1971 COLONOSCOPY - COLON CA SCREENING 1971 CT COLONOGRAPHY - COLON CA SCREENING 1971 Colorectal Cancer Screening 1971 FIT - COLON CA SCREENING 1971 FLEX SIG - COLON CA SCREENING 1971 MAMMOGRAM 1971 PAP SMEAR 1971 HIV SCREENING 1986 HEPATITIS C SCREENING 09/04/1989 DTAP/TDAP/TD VACCINES (1 - Tdap) 1990 HEPATITIS B VACCINE (1 of 3 - 19+ 3-dose series) 1990 SCREENING FOR DIABETES 10/23/2017 PNEUMOCOCCAL VACCINE 50+ (1 of 1 - PCV) 2021 ZOSTER VACCINE (1 of 2) 2021 COVID-19 VACCINE (1 - 2023-2 5 season) 2024 INFLUENZA VACCINE (#1) 2024 DEPRESSION SCREENING 11/25/2024 HIB VACCINE Aged Out No longer eligi ble based on patient's age to complete this topic HPV VACCINE Aged Out No longer eligi ble based on patient's age to complete this topic MENINGOCOCCAL (Group B) VACCINE Aged Out No longer eligible based on patient's age to complete this topic MENINGOCOCCAL VACCINE Aged Out No leslie garland eligible based on patient's age to complete this topic PNEUMOCOCCAL VACCINE Aged Out No long er eligible based on patient's age to complete this topic Care Teams Cold Reduction Roller Relationship Specialty Start Date End Date Efren Klein MD PCP - General Internal Medicine 10/23/17 Ravindra Almanzar MD Internal Medicine 10/23/17
--- OUTSIDE RECORDS SUMMARY | 2025-01-28 11:13 | XMS_ITS | Data Portability ---
Author Organization [place] [employer] Main Office Address [address] [place] [address] Assessment Encounter Date Assessment Date Assessment LastModified by Organization Details LastModified Time 02/14/2023 02/14/2023 We will disconti ede the hydrochlorothiazide she will only be on lisinopril as monotherapy for hypertension He has a gallbladder ultrasound to make sure there is no stones No alcohol which she says she has not been using Follow-up with me in 3 months Singulair for rhinitis [email or web address] Not available 02/14/2023 10:39:37 05/24/2023 05/24/2023 Dyslipidemia discussed watch red meat and saturated fat Impacted cerumen ear drops [id number] no better call for ENT consult Obesity reduced calorie Hypertension reduce salt Regular walking OBGYN referral for ovarian cyst and possible uterine fibroid Keep all appointments [email or web address] Not available 05/25/2023 15:58:31 Plan of Treatment Reminders Order Date Submit Date Provider Last Modified By Organization Details Last Modified Time Details Appointments None recorded. Lab None recorded. Referral None recorded. Procedures None recorded. Surgeries None recorded. Imaging None recorded. Medication Orders Singulair 10 mg tablet 2022 023 [id number] [facility] #[id number], [address] [place] [address], [place], [id number], 11:33:06 lisinopril 10 mg tablet 2022 023 [email or web address] [facility] #[id number] [place], [place], [id number], 11:33:06 Patient TargetsNo targets recorded. Patient InstructionsNo instructions recorded. Reason for Referral None Reported. Results Created Date Observation Date Name Description Value Unit Range Abnormal Flag Note LastModifiedBy Organization Detail LastModifiedTime 07/19/2007/19/2022 LIPID PANEL LDL cholesterol, calculated 85 mg/dL 0-130 NIH ANYI NSUS REPOR T RECOM MENDA TIONS FOR LDL: ADULT CHILD LOW RISK <130 <110 (OPTI MAL LDL) <100 ----- BORDE RLINE : 130-1 59 ----- HIGH RISK: >160 >130 A TRIGL YCERI DE RESUL T >400 INVAL IDATE S THE CALCU LATIO N FOR LDL FRACT IONAT ION - THE LDL RESUL T WILL NOT BE REPOR ANNETTE. Not Available [facility] (Lab) [address] [place], [address], 07/19/2022 18:24:44 07/19/20 22 07/19/2022 LIPID PANEL cholesterol 202 mg/dL 140-19 9 high NIH ANYI NSUS RECOM MENDA TION FOR MARTINE STERO L: ADULT CHILD LOW RISK: <200 <170 BORDE RLINE : <200- 239 ----- HIGH RISK: >240 >200 Not Available [facility] (Lab) [address] [place], [address], 07/19/2022 18:24:44 07/19/2007/19/2022 LIPID PANEL triglyceride s 266 mg/dL 0-150 high NIH ANYI NSUS REPOR T RECOM MENDA TION FOR TRIGL YCERI JEANNINE: ADULT CHILD LOW RISK: <150 ----- BODER LINE: 150-1 99 ----- HIGH RISK: >200 ----- Not Available [facility] (Lab) [address] [place], [address], 07/19/2022 18:24:44 07/19/2007/19/2022 LIPID PANEL HDL cholesterol 64 mg/dL 40- Not Available [facility] (Lab) [address] [place], [address], 07/19/2022 18:24:44 07/19/20 22 07/19/2022 COMPR EHENS TOBY METAB OLIC PANEL carbon dioxide 29 mmol/ L 22-30 Not Available [facility] (Lab) [address] [place], [address], 07/19/2022 18:24:39 07/19/20 22 07/19/2022 COMPR EHENS TOBY METAB OLIC PANEL sodium 137 mmol/ L 137-14 5 Not Available [facility] (Lab) [address] [place], [address], 07/19/2022 18:24:39 07/19/20 22 07/19/2022 COMPR EHENS TOBY METAB OLIC PANEL potassium 4.1 mmol/ L 3.5-5. 1 Not Available [facility] (Lab) [address] [place], [address], 07/19/2022 18:24:39 07/19/20 22 07/19/2022 COMPR EHENS TOBY METAB OLIC PANEL chloride 101 mmol/ L 98-107 Not Available [facility] (Lab) [address] [place], [address], 07/19/2022 18:24:39 07/19/20 22 07/19/2022 COMPR EHENS TOBY METAB OLIC PANEL anion gap 11.1 mmol/ L 14-22 low Not Available [facility] (Lab) [address] [place], [address], 07/19/2022 18:24:39 07/19/20 22 07/19/2022 COMPR EHENS TOBY METAB OLIC PANEL glucose 80 mg/dL 70-99 Not Available [facility] (Lab) [address] [place], [address], 07/19/2022 18:24:39 07/19/20 22 07/19/2022 COMPR EHENS TOBY METAB OLIC PANEL BUN 17 mg/dL 8-19 Not Available [facility] (Lab) [address] [place], [address], 07/19/2022 18:24:39 07/19/2007/19/2022 COMPR EHENS TOBY METAB OLIC PANEL creatinine 1.06 mg/dL 0.66-1 .25 Not Available [facility] (Lab) [address] [place], [address], 07/19/2022 18:24:39 07/19/20 22 07/19/2022 COMPR EHENS TOBY METAB OLIC PANEL GFR 55 Refer ence Range : [place] ge GFR Healt hy Adult : >60 mL/mi n/1.7 3 m2 Chron ic Kidne y Disea se: 15-60 mL/mi n/1.7 3 m2 Kidne y Failu re: <15/m L/min /1.73 m2 www.n iddk. nih.g ov The MDRD study equat ion has not been valid ated in child erika <18 years of age; pregn ant women ; the elder ly >85 years of age; or in some racia l or ethni c subgr oups, such as [facility] nics. Outsi de the valid ated pasquale eters , estim ated GFR is less accur ate, requi ring clini lauryn judgm ent on a case- by-ca se basis . Clini lauryn inter preta tion for other races and ages must be made by the clini radha. The MDRD study equat ion has not been valid ated for the evalu ation of serum creat inine relat ed to nutri gen l statu s or medic ation usage . For perso ns <18 years of age, a pedia tric GFR calcu lator is avail able on the [employer] websi te: https ://michelle w.nakul clements.o sherri/pr ofess ional s/kdo qi/gf r_cal culat or Not Available [facility] (Lab) [address] [place], [address], 07/19/2022 18:24:39 07/19/20 22 07/19/2022 COMPR EHENS TOBY METAB OLIC PANEL alkaline phosphatase 92 U/L 38-126 Not Available [facility] (Lab) [address] [place], [address], 07/19/2022 18:24:39 07/19/20 22 07/19/2022 COMPR EHENS TOBY METAB OLIC PANEL alanine aminotransfe rase 31 U/L 0-35 Not Available [facility] (Lab) [address] [place], [address], 07/19/2022 18:24:39 07/19/20 22 07/19/2022 COMPR EHENS TOBY METAB OLIC PANEL aspartate aminotransfe rase 35 U/L 15-37 Not Available [facility] (Lab) [address] [place], [address], 07/19/2022 18:24:39 07/19/20 22 07/19/2022 COMPR EHENS TOBY METAB OLIC PANEL bilirubin, total 0.80 mg/dL 0.20-1 .30 Not Available [facility] (Lab) [address] [place], [address], 07/19/2022 18:24:39 07/19/20 22 07/19/2022 COMPR EHENS TOBY METAB OLIC PANEL calcium 9.4 mg/dL 8.4-10 .2 Not Available [facility] (Lab) [address] [place], [address], 07/19/2022 18:24:39 07/19/20 22 07/19/2022 COMPR EHENS TOBY METAB OLIC PANEL total protein 7.0 g/dL 6.3-8. 2 Not Available [facility] (Lab) [address] [place], [address], 07/19/2022 18:24:39 07/19/20 22 07/19/2022 COMPR EHENS TOBY METAB OLIC PANEL albumin 4.3 g/dL 3.4-5. 0 Not Available [facility] (Lab) [address] [place], [address], 07/19/2022 18:24:39 07/19/20 22 07/19/2022 COMPR EHENS TOBY METAB OLIC PANEL globulin 2.7 g/dL 2.6-4. 2 Not Available [facility] (Lab) [address] [place], [address], 07/19/2022 18:24:39 07/19/20 22 07/19/2022 COMPR EHENS TOBY METAB OLIC PANEL A/G ratio 1.6 ratio 1.0-2. 0 Not Available [facility] (Lab) [address] [place], [address], 07/19/2022 18:24:39 07/19/20 22 07/19/2022 CBC/C OMPLE TE BLD COUNT W/DIF F mean platelet volume 9.8 fL 9.0-12 .4 Not Available [facility] (Lab) [address] [place], [address], 07/19/2022 17:40:07 07/19/20 22 07/19/2022 CBC/C OMPLE TE BLD COUNT W/DIF F white blood cells 7.8 x10'3 /uL 4.2-10 .8 Not Available [facility] (Lab) [address] [place], [address], 07/19/2022 17:40:07 07/19/20 22 07/19/2022 CBC/C OMPLE TE BLD COUNT W/DIF F red blood cells 4.46 x10'6 /uL 3.80-5 .20 Not Available [facility] (Lab) [address] [place], [address], 07/19/2022 17:40:07 07/19/20 22 07/19/2022 CBC/C OMPLE TE BLD COUNT W/DIF F hemoglobin 14.6 g/dL 12.0-1 5.6 Not Available [facility] (Lab) [address] [place], [address], 07/19/2022 17:40:07 07/19/20 22 07/19/2022 CBC/C OMPLE TE BLD COUNT W/DIF F hematocrit 43.3 % 35.7-4 5.7 Not Available [facility] (Lab) [address] [place], [address], 07/19/2022 17:40:07 07/19/20 22 07/19/2022 CBC/C OMPLE TE BLD COUNT W/DIF F mean red cell volume 97.1 fL 82.0-9 9.0 Not Available [facility] (Lab) [address] [place], [address], 07/19/2022 17:40:07 07/19/20 22 07/19/2022 CBC/C OMPLE TE BLD COUNT W/DIF F mean red cell hemoglobin 32.7 pg 27.0-3 3.0 Not Available [facility] (Lab) [address] [place], [address], 07/19/2022 17:40:07 07/19/20 22 07/19/2022 CBC/C OMPLE TE BLD COUNT W/DIF F mean RBC HGB concentratio n 33.7 g/dL 31.0-3 6.0 Not Available [facility] (Lab) [address] [place], [address], 07/19/2022 17:40:07 07/19/20 22 07/19/2022 CBC/C OMPLE TE BLD COUNT W/DIF F red cell distribution width 13.7 % 11.8-1 5.5 Not Available [facility] (Lab) [address] [place], [address], 07/19/2022 17:40:07 07/19/20 22 07/19/2022 CBC/C OMPLE TE BLD COUNT W/DIF F platelets 250 x10'3 /uL 150-40 0 Not Available [facility] (Lab) [address] [place], [address], 07/19/2022 17:40:07 07/19/20 22 07/19/2022 CBC/C OMPLE TE BLD COUNT W/DIF F neutrophils 51.9 % 39.0-7 2.0 Not Available [facility] (Lab) [address] [place], [address], 07/19/2022 17:40:07 07/19/20 22 07/19/2022 CBC/C OMPLE TE BLD COUNT W/DIF F lymphocytes 30.4 % 16.0-4 7.0 Not Available [facility] (Lab) [address] [place], [address], 07/19/2022 17:40:07 07/19/20 22 07/19/2022 CBC/C OMPLE TE BLD COUNT W/DIF F monocytes 9.6 % 5.0-12 .0 Not Available [facility] (Lab) [address] [place], [address], 07/19/2022 17:40:07 07/19/20 22 07/19/2022 CBC/C OMPLE TE BLD COUNT W/DIF F eosinophils 7.2 % 1.0-7. 0 high Not Available [facility] (Lab) [address] [place], [address], 07/19/2022 17:40:07 07/19/20 22 07/19/2022 CBC/C OMPLE TE BLD COUNT W/DIF F basophils 0.6 % 0.0-2. 0 Not Available [facility] (Lab) [address] [place], [address], 07/19/2022 17:40:07 07/19/20 22 07/19/2022 CBC/C OMPLE TE BLD COUNT W/DIF F immature granulocytes 0.3 % 0.00-0 .50 Not Available [facility] (Lab) [address] [place], [address], 07/19/2022 17:40:07 07/19/20 22 07/19/2022 CBC/C OMPLE TE BLD COUNT W/DIF F neutrophils, absolute count 4.07 x10'3 /uL 1.5-8. 0 Not Available [facility] (Lab) [address] [place], [address], 07/19/2022 17:40:07 07/19/20 22 07/19/2022 CBC/C OMPLE TE BLD COUNT W/DIF F lymphocytes, absolute count 2.38 x10'3 /uL 1.07-3 .43 Not Available [facility] (Lab) [address] [place], [address], 07/19/2022 17:40:07 07/19/20 22 07/19/2022 CBC/C OMPLE TE BLD COUNT W/DIF F monocytes, absolute count 0.75 x10'3 /uL 0.29-0 .99 Not Available [facility] (Lab) [address] [place], [address], 07/19/2022 17:40:07 07/19/20 22 07/19/2022 CBC/C OMPLE TE BLD COUNT W/DIF F eosinophils, absolute count 0.56 x10'3 /uL 0.02-0 .53 high Not Available [facility] (Lab) [address] [place], [address], 07/19/2022 17:40:07 07/19/20 22 07/19/2022 CBC/C OMPLE TE BLD COUNT W/DIF F basophils, absolute count 0.05 x10'3 /uL 0.01-0 .08 Not Available [facility] (Lab) [address] [place], [address], 07/19/2022 17:40:07 07/19/20 22 07/19/2022 CBC/C OMPLE TE BLD COUNT W/DIF F immature granulocytes ,absolute 0.02 x10'3 /uL 0.00-0 .05 Not Available [facility] (Lab) [address] [place], [address], 07/19/2022 17:40:07 07/19/20 22 07/19/2022 CBC/C OMPLE TE BLD COUNT W/DIF F nucleated red blood cells 0.0 % -0 Not Available [facility] (Lab) [address] [place], [address], 07/19/2022 17:40:07 07/19/20 22 07/19/2022 CBC/C OMPLE TE BLD COUNT W/DIF F NRBC# 0.00 x10'3 /uL Not Available [facility] (Lab) [address] [place], [address], 07/19/2022 17:40:07 11/14/20 22 11/14/2022 urina lysis , dipst ick Leukocytes (reference range: negative eze/ l) Negati ve Not Available [facility] [address] [place] [address], [address], 11/13/2022 16:55:15 11/14/20 22 11/14/2022 urina lysis , dipst ick Nitrite (reference rage: negative mg/dl) negati ve Not Available [facility] [address] [place] [address], [address], 11/13/2022 16:55:15 11/14/20 22 11/14/2022 urina lysis , dipst ick Urobilinogen (reference range: 0.2-1 mg/dl) 0.[address] [facility] [address] [place] [address], [address] , [place], [address], 11/13/2022 16:55:15 11/14/20 22 11/14/2022 urina lysis , dipst ick Protein (reference range: negative mg/dl) Negati ve Not Available [address], [address], [address], 11/13/2022 16:55:15 11/14/20 22 11/14/2022 urina lysis , dipst ick pH (reference range: 5-7) 6.0 Not Available [address], [place] [address], [place], [address], 11/13/2022 16:55:15 11/14/20 22 11/14/2022 urina lysis , dipst ick Blood (reference range: negative Danyel/ l) Negati ve Not Available [address], [address], 11/13/2022 16:55:15 11/14/20 22 11/14/2022 urina lysis , dipst ick Specific [place] (reference range: 1.005-1.030) 1.025 Not Available [place] [address], [place], [address], 11/13/2022 16:55:15 11/14/20 22 11/14/2022 urina lysis , dipst ick Ketone (reference range: negative mg/dl) Negati ve Not Available [address], [address], [address], 11/13/2022 16:55:15 11/14/20 22 11/14/2022 urina lysis , dipst ick Bilirubin (reference range: negative mg/dl) Negati ve Not Available [facility] [address] [place] [address], [address], [address], 11/13/2022 16:55:15 11/14/20 22 11/14/2022 urina lysis , dipst ick Glucose (reference range: negative mg/dl) Negati ve Not Available [facility] [address] [place] [address], [address] , [place], [address], 11/13/2022 16:55:15 11/14/20 22 11/14/2022 urina lysis , dipst ick Appearance Clear Not Available [facility] [address] [place] [address], [place] [address], [place], [address], 11/13/2022 16:55:15 05/24/20 23 05/24/2023 CBC/C OMPLE TE BLD COUNT W/DIF F white blood cells 5.7 x10'3 /uL 4.2-10 .8 Not Available [facility] (Lab) [address] [place], [address], 05/24/2023 11:56:46 05/24/20 23 05/24/2023 CBC/C OMPLE TE BLD COUNT W/DIF F red blood cells 5.02 x10'6 /uL 3.80-5 .20 Not Available [facility] (Lab) [address] [place], [address], 05/24/2023 11:56:46 05/24/20 23 05/24/2023 CBC/C OMPLE TE BLD COUNT W/DIF F hemoglobin 16.0 g/dL 12.0-1 5.6 high Not Available [facility] (Lab) [address] [place], [address], 05/24/2023 11:56:46 05/24/20 23 05/24/2023 CBC/C OMPLE TE BLD COUNT W/DIF F hematocrit 48.2 % 35.7-4 5.7 high Not Available [facility] (Lab) [address] [place], [address], 05/24/2023 11:56:46 05/24/20 23 05/24/2023 CBC/C OMPLE TE BLD COUNT W/DIF F mean red cell volume 96.0 fL 82.0-9 9.0 Not Available [facility] (Lab) [address] [place], [address], 05/24/2023 11:56:46 05/24/20 23 05/24/2023 CBC/C OMPLE TE BLD COUNT W/DIF F mean red cell hemoglobin 31.9 pg 27.0-3 3.0 Not Available [facility] (Lab) [address] [place], [address], 05/24/2023 11:56:46 05/24/20 23 05/24/2023 CBC/C OMPLE TE BLD COUNT W/DIF F mean RBC HGB concentratio n 33.2 g/dL 31.0-3 6.0 Not Available [facility] (Lab) [address] [place], [address], 05/24/2023 11:56:46 05/24/20 23 05/24/2023 CBC/C OMPLE TE BLD COUNT W/DIF F red cell distribution width 13.3 % 11.8-1 5.5 Not Available [facility] (Lab) [address] [place], [address], 05/24/2023 11:56:46 05/24/20 23 05/24/2023 CBC/C OMPLE TE BLD COUNT W/DIF F platelets 250 x10'3 /uL 150-40 0 Not Available [facility] (Lab) [address] [place], [address], 05/24/2023 11:56:46 05/24/20 23 05/24/2023 CBC/C OMPLE TE BLD COUNT W/DIF F mean platelet volume 10.0 fL 9.0-12 .4 Not Available [facility] (Lab) [address] [place], [address], 05/24/2023 11:56:46 05/24/20 23 05/24/2023 CBC/C OMPLE TE BLD COUNT W/DIF F neutrophils 49.3 % 39.0-7 2.0 Not Available [facility] (Lab) [address] [place], [address], 05/24/2023 11:56:46 05/24/20 23 05/24/2023 CBC/C OMPLE TE BLD COUNT W/DIF F lymphocytes 33.5 % 16.0-4 7.0 Not Available [facility] (Lab) [address] [place], [address], 05/24/2023 11:56:46 05/24/20 23 05/24/2023 CBC/C OMPLE TE BLD COUNT W/DIF F monocytes 9.7 % 5.0-12 .0 Not Available [facility] (Lab) [address] [place], [address], 05/24/2023 11:56:46 05/24/20 23 05/24/2023 CBC/C OMPLE TE BLD COUNT W/DIF F eosinophils 6.3 % 1.0-7. 0 Not Available [facility] (Lab) [address] [place], [address], 05/24/2023 11:56:46 05/24/20 23 05/24/2023 CBC/C OMPLE TE BLD COUNT W/DIF F basophils 0.7 % 0.0-2. 0 Not Available [facility] (Lab) [address] [place], [address], 05/24/2023 11:56:46 05/24/20 23 05/24/2023 CBC/C OMPLE TE BLD COUNT W/DIF F immature granulocytes 0.5 % 0.00-0 .50 Not Available [facility] (Lab) [address] [place], [address], 05/24/2023 11:56:46 05/24/20 23 05/24/2023 CBC/C OMPLE TE BLD COUNT W/DIF F neutrophils, absolute count 2.79 x10'3 /uL 1.5-8. 0 Not Available [facility] (Lab) [address] [place], [address], 05/24/2023 11:56:46 05/24/20 23 05/24/2023 CBC/C OMPLE TE BLD COUNT W/DIF F lymphocytes, absolute count 1.90 x10'3 /uL 1.07-3 .43 Not Available [facility] (Lab) [address] [place], [address], 05/24/2023 11:56:46 05/24/20 23 05/24/2023 CBC/C OMPLE TE BLD COUNT W/DIF F monocytes, absolute count 0.55 x10'3 /uL 0.29-0 .99 Not Available [facility] (Lab) [address] [place], [address], 05/24/2023 11:56:46 05/24/20 23 05/24/2023 CBC/C OMPLE TE BLD COUNT W/DIF F eosinophils, absolute count 0.36 x10'3 /uL 0.02-0 .53 Not Available [facility] (Lab) [address] [place], [address], 05/24/2023 11:56:46 05/24/20 23 05/24/2023 CBC/C OMPLE TE BLD COUNT W/DIF F basophils, absolute count 0.04 x10'3 /uL 0.01-0 .08 Not Available [facility] (Lab) [address] [place], [address], 05/24/2023 11:56:46 05/24/20 23 05/24/2023 CBC/C OMPLE TE BLD COUNT W/DIF F immature granulocytes ,absolute 0.03 x10'3 /uL 0.00-0 .05 Not Available [facility] (Lab) [address] [place], [address], 05/24/2023 11:56:46 05/24/20 23 05/24/2023 CBC/C OMPLE TE BLD COUNT W/DIF F nucleated red blood cells 0.0 % -0 Not Available [facility] (Lab) [address] [place], [address], 05/24/2023 11:56:46 05/24/20 23 05/24/2023 CBC/C OMPLE TE BLD COUNT W/DIF F NRBC# 0.00 x10'3 /uL Not Available [facility] (Lab) [address] [place], [address], 05/24/2023 11:56:46 05/24/20 23 05/24/2023 COMPR EHENS TOBY METAB OLIC PANEL sodium 142 mmol/ L 137-14 5 Not Available [facility] (Lab) [address] [place], [address], 05/24/2023 12:21:15 05/24/20 23 05/24/2023 COMPR EHENS TOBY METAB OLIC PANEL potassium 4.6 mmol/ L 3.5-5. 1 Not Available [facility] (Lab) [address] [place], [address], 05/24/2023 12:21:15 05/24/20 23 05/24/2023 COMPR EHENS TOBY METAB OLIC PANEL chloride 104 mmol/ L 98-107 Not Available [facility] (Lab) [address] [place], [address], 05/24/2023 12:21:15 05/24/20 23 05/24/2023 COMPR EHENS TOBY METAB OLIC PANEL carbon dioxide 30 mmol/ L 22-30 Not Available [facility] (Lab) [address] [place], [address], 05/24/2023 12:21:15 05/24/20 23 05/24/2023 COMPR EHENS TOBY METAB OLIC PANEL anion gap 12.6 mmol/ L 14-22 low Not Available [facility] (Lab) [address] [place], [address], 05/24/2023 12:21:15 05/24/20 23 05/24/2023 COMPR EHENS TOBY METAB OLIC PANEL glucose 96 mg/dL 70-99 Not Available [facility] (Lab) [address] [place], [address], 05/24/2023 12:21:15 05/24/20 23 05/24/2023 COMPR EHENS TOBY METAB OLIC PANEL BUN 13 mg/dL 8-19 Not Available [facility] (Lab) [address] [place], [address], 05/24/2023 12:21:15 05/24/20 23 05/24/2023 COMPR EHENS TOBY METAB OLIC PANEL creatinine 0.85 mg/dL 0.66-1 .25 Not Available [facility] (Lab) [address] [place], [address], 05/24/2023 12:21:15 05/24/20 23 05/24/2023 COMPR EHENS TOBY METAB OLIC PANEL GFR >60 Refer ence Range : [place] ge GFR Healt hy Adult : >60 mL/mi n/1.7 3 m2 Chron ic Kidne y Disea se: 15-60 mL/mi n/1.7 3 m2 Kidne y Failu re: <15/m L/min /1.73 m2 www.n iddk. nih.g ov The MDRD study equat ion has not been valid ated in child erika <18 years of age; pregn ant women ; the elder ly >85 years of age; or in some racia l or ethni c subgr oups, such as Hispa nics. Outsi de the valid ated pasquale eters , estim ated GFR is less accur ate, requi ring clini lauryn judgm ent on a case- by-ca se basis . Clini lauryn inter preta tion for other races and ages must be made by the clini radha. The MDRD study equat ion has not been valid ated for the evalu ation of serum creat inine relat ed to nutri gen l statu s or medic ation usage . For perso ns <18 years of age, a pedia tric GFR calcu lator is avail able on the [facility] websi te: https :[email or web address] clements.kerri rg/pr ofess ional s/kdo qi/gf r_cal culat or Not Available [facility] (Lab) [address] [place], [address], 05/24/2023 12:21:15 05/24/20 23 05/24/2023 COMPR EHENS TOBY METAB OLIC PANEL alkaline phosphatase 90 U/L 38-126 Not Available [facility] (Lab) [address] [place], [address], 05/24/2023 12:21:15 05/24/20 23 05/24/2023 COMPR EHENS TOBY METAB OLIC PANEL alanine aminotransfe rase 28 U/L 0-35 Not Available [facility] (Lab) [address] [place], [address], 05/24/2023 12:21:15 05/24/20 23 05/24/2023 COMPR EHENS TOBY METAB OLIC PANEL aspartate aminotransfe rase 35 U/L 15-37 Not Available [facility] (Lab) [address] [place], [address], 05/24/2023 12:21:15 05/24/20 23 05/24/2023 COMPR EHENS TOBY METAB OLIC PANEL bilirubin, total 0.40 mg/dL 0.20-1 .30 Not Available [facility] (Lab) [address] [place], [address], 05/24/2023 12:21:15 05/24/20 23 05/24/2023 COMPR EHENS TOBY METAB OLIC PANEL calcium 9.5 mg/dL 8.4-10 .2 Not Available [facility] (Lab) [address] [place], [address], 05/24/2023 12:21:15 05/24/20 23 05/24/2023 COMPR EHENS TOBY METAB OLIC PANEL total protein 7.6 g/dL 6.3-8. 2 Not Available [facility] (Lab) [address] [place], [address], 05/24/2023 12:21:15 05/24/20 23 05/24/2023 COMPR EHENS TOBY METAB OLIC PANEL albumin 4.4 g/dL 3.4-5. 0 Not Available [facility] (Lab) [address] [place], [address], 05/24/2023 12:21:15 05/24/20 23 05/24/2023 COMPR EHENS TOBY METAB OLIC PANEL globulin 3.2 g/dL 2.6-4. 2 Not Available [facility] (Lab) [address] [place], [address], 05/24/2023 12:21:15 05/24/20 23 05/24/2023 COMPR EHENS TOBY METAB OLIC PANEL A/G ratio 1.4 ratio 1.0-2. 0 Not Available [facility] (Lab) [address] [place], [address], 05/24/2023 12:21:15 05/24/20 23 05/24/2023 LIPID PANEL cholesterol 184 mg/dL 140-19 9 NIH ANYI NSUS RECOM MENDA TION FOR MARTINE STERO L: ADULT CHILD LOW RISK: <200 <170 BORDE RLINE : <200- 239 ----- HIGH RISK: >240 >200 Not Available [facility] (Lab) [address] [place], [address], 05/24/2023 12:21:20 05/24/20 23 05/24/2023 LIPID PANEL triglyceride s 75 mg/dL 0-150 NIH ANYI NSUS REPOR T RECOM MENDA TION FOR TRIGL YCERI JEANNINE: ADULT CHILD LOW RISK: <150 ----- BODER LINE: 150-1 99 ----- HIGH RISK: >200 ----- Not Available [facility] (Lab) [address] [place], [address], 05/24/2023 12:21:20 05/24/20 23 05/24/2023 LIPID PANEL HDL cholesterol 89 mg/dL 40- Not Available [facility] (Lab) [address] [place], [address], 05/24/2023 12:21:20 05/24/20 23 05/24/2023 LIPID PANEL LDL cholesterol, calculated 80 mg/dL 0-130 NIH ANYI NSUS REPOR T RECOM MENDA TIONS FOR LDL: ADULT CHILD LOW RISK <130 <110 (OPTI MAL LDL) <100 ----- BORDE RLINE : 130-1 59 ----- HIGH RISK: >160 >130 A TRIGL YCERI DE RESUL T >400 INVAL IDATE S THE CALCU LATIO N FOR LDL FRACT IONAT ION - THE LDL RESUL T WILL NOT BE REPOR ANNETTE. Not Available [facility] (Lab) [address] [place], [address], 05/24/2023 12:21:20 05/24/20 23 05/24/2023 T3 FREE free T3 3.4 pg/mL 2.77-5 .27 Not Available [facility] (Lab) [address] [place], [address], 05/24/2023 12:37:25 05/24/20 23 05/24/2023 T4 FREE free T4 1.36 NG/dL 0.78-2 .19 Not Available [facility] (Lab) [address] [place], [address], 05/24/2023 12:37:26 05/24/20 23 05/24/2023 TSH thyroid-stim ulating hormone 1.580 uIU/m L 0.465- 4.680 Not Available [facility] (Lab) [address] [place], [address], 05/24/2023 12:50:18 04/17/20 22 04/17/2022 XR, kidne y + urete r + bladd er No observ ation record ed. [id number] [facility] [address] [place], [address], 01/23/2023 01:23:36 04/24/20 22 04/24/2022 XR, kidne y + urete r + bladd er No observ ation record ed. [id number] [facility] [address] [place], [address], 01/23/2023 01:23:36 11/08/20 22 11/08/2022 XR, kidne y + urete r + bladd er No observ ation record ed. [id number] [facility] [address] [place], [address], 01/23/2023 01:23:36 02/15/20 23 02/07/2023 CT, abdom en + pelvi s, w/ contr ast No observ ation record ed. [email or web address] Not Available 2022 18:05:59 02/20/20 23 02/19/2023 US, gallb ladde r No observ ation record ed. [email or web address] [facility] [address] [facility] [address], [place], [address], 05/27/2023 11:33:39 05/06/20 23 02/07/2023 CT, abdom en + pelvi s, w/ contr ast No observ ation record ed. [email or web address] [facility] [address] [place], [address], 10/05/2023 19:02:48 12/17/19 24 12/17/2023 XR, kidne y + urete r + bladd er No observ ation record ed. [address], [place], [address], 12/23/2023 09:21:49 01/29/20 24 01/28/2024 XR, knee, 1 or 2 view No observ ation record ed. [email or web address] [address] [facility] [place], [address], 03/05/2024 14:07:21 06/18/20 24 06/18/2024 US, abdom en, limit ed [facility] [address] [place] [address] Patien t Name: DOMITILA BARR [facility] ion #: [id number] Sex: F : 1969 6 Dictat ed By: Lencho Romero Attend ing Physic mary: EDWARD KLEIN Orderi Physic mary: EDWARD KLEIN Exam Date: 2023 07:14 AM Exam Name: US ABDOME N SINGLE ORGAN Admitt ing Diagno sis(es ): INDICA TION: Pain. TECHNI QUE: Multip le real-t john sonogr aphic images of the abdome n were obtain ed. COMPAR ROMARIO: None FINDIN GS: The liver is hetero genous in echoge nicity . The liver measur es cm. No intrah epatic biliar y ductal dilata tion is noted. The gallbl adder wall measur es 0.1 cm and is unrema rkable . No gallst ones or sludge is seen. The common duct measur es 0.5 cm and is unrema rkable . No perich olecys tic fluid is noted. The right kidney measur es 10cm. No hydron ephros is. The pancre as is not well visual ized due to obscur ation from bowel gas. The visual ized portio ns of the IVC and aorta are grossl y unrema rkable . IMPRES DONALD: 1. Heapti c Steato sis. Electr onical ly Signed by: Lencho Romero at 2023 10:20: 23 AM Page 1 [email or web address] [facility] (Imaging) [address] [place], [address], 08/06/2024 11:31:46 12/21/19 25 12/21/2024 scree sal breas t amrita, bilat [facility] [address] [place] [address] Patien t Name: DOMITILA BARR Access ion #: [id number] Sex: F : 1969 2 Locati on: RAD Attend ing Physic mary: EDWARD KLEIN Orderi ng Physic mary: EDWARD KLEIN Exam Date: 025 7:17 AM Exam Name: MG SCRN BREAST AMRITA BILAT Admitt ing Diagno sis(es ): MAMMOG KRISHNA REPORT - FINAL EXAM: MG SCRN BREAST AMRITA BILAT HISTOR Y: screen ing mammog noesimo 54-yea r-old female with no curren t breast compla ints. The patien t has a histor y of bilate ral breast reduct ion surger y in 2003. COMPAR ROMARIO: 2019, 2015 TECHNI QUE: Bilate ral CC and MLO views of the breast s were perfor med. Digita l Mammog krishna images were obtain ed. CAD (compu ter assist ed detect ion) was utiliz ed. 3D Digita l breast tomosy nthesi s was perfor med and used in the interp retati on of images . FINDIN GS: The breast s are almost entire ly fatty. Page [address] [facility] Deb joseph Name: DOMITILA BARR ion #: [id number] Sex: F : 1969 2 Exam Date: 7:17 AM Exam Name: SCRN BREAST AMRITA BILAT Admitt ing Diagno sis(es ): No masses , asymme tries, suspic ious calcif icatio ns, or michell ectura l distor tion are seen. IMPRES DONALD: BIRADS 1: Assess ment comple te. Negati ve. Recomm end annual screen ing mammog krishna. Accord ing to the [employer], yearly mammog chaka are recomm ended starti ng at age 40 and contin uing as long as the woman is in good health . Clinic al Breast Exam should be part of the period health exam-a bout every 3 years for women in their 20s and 30s and every year for women 40 and over. Breast self-e xam is an option for women in their 20s. Any breast change noted on the breast self-e xam she would be report ed prompt ly to the [facility]. A negati ve mammog krishna report should not discou rage follow -up or biopsy of a clinic ally signif icant findin g and/or abnorm ality. Dense breast tissue may obscur e small neopla sms. This deb joseph has been entere d into a mammog krishna remind er system with a target date for her next mammog onesimo. Create d and electr onical ly signed by: Noel silver MD Signed Date: 8:30 AM (CT) Dictat ed by: Noel silver MD DD: 8:30 AM (CT) DT: 8:30 AM (CT) Page 2 of 2 INTERFACE [facility] (Imaging) [address] [place] [address], [address], 12/21/2024 09:33:01 Result Notes None recorded. Problems Name Problem SNOMED Code Status Onset Date Resolution Date Notes Provider Name and Address Organization Details Recorded Time Plantar fasciitis of left foot 5398836999760 9101 Active 2020 Not Available [facility] 3 06:43:44 Pain of left ankle joint 3470662966362 9103 Active 2021 Not Available [facility] 3 06:43:44 Backache 306615152 Active Not Available [facility] 3 06:43:44 Plantar fasciitis 095633889 Active 2017 Not Available [facility] 3 06:43:44 Ankle pain 631409284 Active 2019 Not Available [facility] 3 06:43:44 Dry skin dermatitis 969441070 Active 2019 Not Available [facility] 3 06:43:44 Current tear of medial cartilage AND/OR meniscus of knee Active Not Available [facility] 3 06:43:44 Knee pain Active Not Available [facility] 3 06:43:44 Pain in left foot 6524051445862 07 Active 2021 Not Available [facility] 3 06:43:44 Peroneal tendinitis of left lower limb 1955448266307 07 Active 2021 Not Available [facility] 3 06:43:44 Dyslipidem ia 680458756 Active 2018 Not Available [facility] 3 06:43:44 Obesity 319837712 Active 2021 Not Available [facility] 3 06:43:44 Upper respirator y infection 56308145 Active 2021 Not Available [facility] 3 06:43:44 Essential hypertensi on 07004939 Active 2020 Not Available [facility] 3 06:43:44 Urinary tract infectious disease 41502095 Active 2021 Not Available [facility] 3 06:43:44 COVID-19 495068670 Active 2021 Not Available [facility] 3 06:43:44 Rhinitis 58197422 Active 2022 Not Available [facility] 3 06:43:44 Pancreatit is 64280054 Active 2022 Not Available [facility] 3 06:43:44 Fatigue 61714124 Active 2022 Not Available [facility] 3 06:43:44 Cyst of ovary 08715702 Active 2022 Not Available [facility] 3 06:43:44 Impacted cerumen of bilateral ears 3382069010459 108 Active 2022 Not Available [facility] 3 06:43:44 Rosacea 288540665 Active 2022 Lisha Guevara RN null, [facility] 3 10:51:33 Pain of left knee joint 3263442851580 07 Active 2023 JOHN Jackson null, [facility] 4 17:31:19 Problem Notes None recorded. Procedures Surgical History Date Name Laterality Status Provider Name and Address Organization Details Recorded Time 04/25/20 22 Kidney Stones completed Not Available [facility] 2022 00:52:48 04/05/20 17 repair of meniscus completed Not Available [facility] 01/23/2023 00:52:48 procedure on eyelid completed Not Available [facility] 01/23/2023 00:52:48 Tubal Ligation completed Not Available [facility] 01/23/2023 00:52:48 Dilation and curettage completed Not Available [facility] 01/23/2023 00:52:48 Breast reduction completed Not Available Count includes the [facility] ealt 01/23/2023 00:52:48 Tonsillectomy completed Not Available [facility] 01/23/2023 00:52:48 Imaging Results Imaging Date Name Status LastModified by [facility] Details LastModified Time 04/17/2022 XR, kidney + ureter + bladder completed [id number] [facility] [address] [place], [address], 01/23/2023 01:23:36 04/24/2022 XR, kidney + ureter + bladder completed [id number] [facility] [address] [place], [address], 01/23/2023 01:23:36 11/08/2022 XR, kidney + ureter + bladder completed [id number] [facility] [address] [place], [address], 01/23/2023 01:23:36 02/07/2023 CT, abdomen + pelvis, w/ contrast completed [email or web address] Information not available 02/17/2023 18:05:59 02/19/2023 US, gallbladder completed [email or web address], [address], 05/27/2023 11:33:39 02/07/2023 CT, abdomen + pelvis, w/ contrast completed [email or web address] [facility] [address] [place], [address], 10/05/2023 19:02:48 12/17/2023 XR, kidney + ureter + bladder completed [address], [address], 12/23/2023 09:21:49 01/28/2024 XR, knee, 1 or 2 view completed [email or web address], [address], 03/05/2024 14:07:21 06/18/2024 US, abdomen, limited completed [email or web address] [facility] (Imaging) [address] [place], [address], 08/06/2024 11:31:46 12/21/2024 screening breast amrita, bilat active INTERFACE [facility] (Imaging) [address] [place], [address], 12/21/2024 09:33:01 Procedure Notes None recorded. Medical Equipment None Reported. Allergies No known drug allergies Medications Name Sig Start Date Stop Date Status Note LastModified by Organization Details LastModified Time multivitami n tablet TK 1 T PO QD active Not Available Not Available No t Available cyclobenzap rine 10 mg tablet Take 1 tablet every day by oral route at bedtime. active Not Available Not Available No t Available amoxicillin 500 mg capsule TK ONE C PO TID TAT 05/09 completed Not Available Not Available Not Available neomycin-po lymyxin-hyd rocort 3.5 mg/mL-10,00 0 unit/mL-1 % ear solution active Not Available Not Available Not Available prednisone 10 mg tablet Take by oral route. take [id number], [id number], 5d7jzud active Not Available Not Available No t Available doxycycline hyclate 100 mg capsule Take 1 capsule twice a day by oral route for 10 days. active Not Available Not Available No t Available fluconazole 150 mg tablet TAKE 1 TABLET BY MOUTH EVERY DAY FOR 1 DAY 08/17 completed Not Available Not Available Not Available hydrocodone 5 mg-acetamin ophen 325 mg tablet TK 1 TO 2 TS PO Q 4 TO 6 H PRN P 11/14 completed Not Available Not Available Not Available meloxicam 15 mg tablet TAKE 1 TABLET BY MOUTH EVERY DAY NEEDED 07/19 completed Not Available Not Available Not Available Debrox 6.5 % ear drops active Not Available Not Available Not Available Zithromax Z-Agustin 250 mg tablet TAKE 2 TABLETS (500 MG) BY ORAL ROUTE ONCE DAILY FOR 1 DAY THEN 1 TABLET (250 MG) BY ORAL ROUTE ONCE DAILY FOR 4 DAYS 02/14 completed Not Available Not Available Not Available metronidazo le 500 mg tablet TAKE 1 TABLET BY MOUTH TWICE DAILY FOR 7 DAYS 08/17 completed Not Available Not Available Not Available acetaminoph en 300 mg-codeine 30 mg tablet TK 1 T PO TID PRN 04/20 completed Not Available Not Available Not Available ciprofloxac in 500 mg tablet TK 1 T PO BID FOR 7 DAYS 05/09 completed Not Available Not Available Not Available triamcinolo ne acetonide 0.1 % topical cream apply to both feet daily as needed active Not Available Not Available No t Available amoxicillin 500 mg tablet Take 1 tablet twice a day by oral route as needed. 05/17 completed Not Available Not Available Not Available Aleve 220 mg tablet Take 2 tablets twice a day by oral route. 06/16 completed Not Available Not Available Not Available oxycodone-a cetaminophe n 5 mg-325 mg tablet 09/11 completed Not Available Not Available Not Available tamsulosin 0.4 mg capsule TAKE 1 CAPSULE BY MOUTH EVERY DAY 11/13 completed Not Available Not Available Not Available benzonatate 100 mg capsule 09/11 completed Not Available Not Available Not Available pantoprazol e 40 mg tablet,fe yed release TAKE 1 TABLET BY MOUTH EVERY DAY active Not Available Not Available No t Available simvastatin 20 mg tablet TK 1 T PO QD 05/09 completed Not Available Not Available Not Available metformin 1,000 mg tablet TK 1 T PO BID 06/07 completed Not Available Not Available Not Available nystatin 100,000 unit/gram topical cream 05/09 completed Not Available Not Available Not Available lisinopril 10 mg tablet TAKE 1 TABLET BY MOUTH ONCE DAILY 2023 active Not Available Not Available Not Avai lable metronidazo le 0.75 % topical cream APPLY THIN LAYER TOPICALLY TO THE AFFECTED AREA TWICE DAILY IN THE MORNING AND IN THE EVENING active Not Available Not Available No t Available montelukast 10 mg tablet TAKE 1 TABLET BY MOUTH EVERY DAY 2023 active Not Available Not Available Not Avai lable furosemide 20 mg tablet Take 1 tablet every day by oral route. 05/09 completed Not Available Not Available Not Available lisinopril 10 mg-hydrochl orothiazide 12.5 mg tablet TAKE 1 TABLET BY MOUTH EVERY DAY 02/14 completed Not Available Not Available Not Available methylpredn isolone 4 mg tablets in a dose pack 09/11 completed Not Available Not Available Not Available norethindro ne (contracept toby) 0.35 mg tablet 04/20 completed Not Available Not Available Not Available cefdinir 300 mg capsule 07/19 completed Not Available Not Available Not Available metronidazo le 0.75 % topical gel APPLY TO AFFECTED AREA QD RUB IN GENTLY AND COMPLETEL Y 06/07 completed Not Available Not Available Not Available Ventolin HFA 90 mcg/actuati on aerosol inhaler active Not Available Not Available Not Available nitrofurant oin monohydrate /macrocryst als 100 mg capsule TAKE 1 CAPSULE BY MOUTH TWICE DAILY FOR 5 DAYS 03/22 completed Not Available Not Available Not Available metronidazo le 1 % topical gel APPLY TOPICALLY TO THE AFFECTED AREA EVERY DAY. RUB IN GENTLY AND COMPLETEL Y active Not Available Not Available No t Available chlorhexidi ne gluconate 0.12 % mouthwash BRUSH SOLUTIOIN ON THE GUMS AFTER THOROUGH BRUSHING AND FLOSSING AFTER BREAKFAST AND BEFORE BED 05/09 completed Not Available Not Available Not Available Naprosyn OTC 2020 active Not Available Not Available Not Avai lable Claritin OTC 05/24 completed Not Available Not Available Not Available Oysco 500/D 500 mg-5 mcg (200 unit) tablet TK 1 T PO BID 04/20 completed Not Available Not Available Not Available PreviDent 5000 Booster Plus 1.1 % dental paste USE TO BRUSH TEETH TID 04/20 completed Not Available Not Available Not Available [facility] 08/17 completed Not Available Not Available Not Available Paxlovid 300 mg (150 mg x 2)-100 mg tablets in a dose pack Take 3 tablets twice a day by oral route for 5 days. 02/14 completed Not Available Not Available Not Available Vitals Date Recorded Body mass index (BMI) Body height Heart rate Body temperature Body weight Systolic blood pressure Diastolic blood pressure Provider Name and Address Organization Details Last Updated DateTime 2 45.9 kg/m2 154.94 cm 61 /min 97 [degF] 950749. 95 g 110 mm[Hg] 70 mm[Hg] Not Available [facility] 3 00:53:28 Date Recorded Body mass index (BMI) Body height Oxygen saturation Oxygen saturation in Arterial blood by Pulse oximetry Heart rate Body temperature Body weight Provider Name and Address Organization Details Last Updated DateTime 2 45.9 kg/m2 154.94 cm 98 % 98 % 66 /min 97.9 [degF] 700034. 95 g Not Available [facility] 3 00:53:36 Date Recorded Body height Provider Name an d Address Organization Details Last Updated DateTime 05/15/2022 154.94 cm Not Available [facility] 3 00:53:30 Date Recorded Body height Body mass index (BMI) Body weight Body temperature Heart rate Systolic blood pressure Diastolic blood pressure Provider Name and Address Organization Details Last Updated DateTime 3 154.94 cm 45.2 kg/m2 574927. 58 g 98.1 [degF] 73 /min 118 mm[Hg] 80 mm[Hg] JOHN Lee [facility] 3 10:03:32 Date Recorded Body height Body mass index (BMI) Body weight Body temperature Heart rate Oxygen saturation Oxygen saturation in Arterial blood by Pulse oximetry Systolic blood pressure Diastolic blood pressure Provider Name and Address Organization Details Last Updated DateTime 3 154.94 cm 45.9 kg/m2 511313. 95 g 97.3 [degF] 72 /min 98 % 98 % 128 mm[Hg] 80 mm[Hg] Edwige Ventura MA [facility] 3 09:57:25 Social History Question Answer Notes LastModified by Organization Details LastModified Time Tobacco Smoking Status Never Smoker EWELINA Ramon, [facility] 05/24/2023 09:43:15 Do You Have An Advance Directive? No [id number] Information not available 01/23/2023 What Is Your Level Of Alcohol Consumption? Occasional [id number] Information not available 01/23/2023 What Is Your Level Of Caffeine Consumption? Moderate [id number] Information not available 01/23/2023 How Much Tobacco Do You Chew? None [id number] Information not available 01/23/2023 In The 14 Days Before Symptom Onset, Have You Had Close Contact With A Laboratory-confi rmed COVID-19 While That Case Was Ill? No [email or web address] Information not available 05/24/2023 In The 14 Days Before Symptom Onset, Have You Had Close Contact With A Person Who Is Under Investigation For COVID-19 While That Person Was Ill? No [email or web address] Information not available 05/24/2023 What Type Of Diet Are You Following? REGULAR [id number] Information not available 01/23/2023 Which Illicit Or Recreational Drugs Have You Used? No [email or web address] Information not available 05/24/2023 Do You Or Have You Ever Used E-cigarettes Or Vape? Never Used Electronic Cigarettes [email or web address] Information not available 05/24/2023 What Is The Highest Grade Or Level Of School You Have Completed Or The Highest Degree You Have Received? 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 No [email or web address] Information not available 05/24/2023 Are There Any Guns Present In Your Home? No [email or web address] Information not available 05/24/2023 Where Do You Live? SingleLevelHouse [email or web address] Information not available 05/24/2023 Do You Have A Medical Power Of Shearing Shed Worker? No [email or web address] Information not available 05/24/2023 What Was The Date Of Your Most Recent Tobacco Screening? 02/14/2023 [email or web address] Information not available 05/24/2023 Have You Ever Been Counseled For Unhealthy Alcohol Use? No Information not available 05/24/2023 Do You Have Any Pets? Yes 2 Dogs 2 Cats Information not available 05/24/2023 What Is Your Relationship Status? [id number] Information not available 01/23/2023 Do You Use Your Seat Belt Or Car Seat Routinely? Yes [email or web address] Information not available 05/24/2023 Do You Have Smoke And Carbon Monoxide Detectors In Your Home? Yes [email or web address] Information not available 05/24/2023 Are You Passively Exposed To Smoke? Yes Information not available 05/24/2023 Do You Or Have You Ever Used Smokeless Tobacco? Never Used Smokeless Tobacco [id number] Information not available 01/23/2023 Are There Any Smokers In Your House? Yes [email or web address] Information not available 05/24/2023 How Much Tobacco Do You Smoke? No [id number] Information not available 01/23/2023 Do You Feel Stressed (tense, Restless, Nervous, Or Anxious, Or Unable To Sleep At Night)? [id number] [email or web address] Information not available 05/24/2023 Do You Use Any Illicit Or Recreational Drugs? No [email or web address] Information not available 05/24/2023 Do You Use Sunscreen Routinely? Yes [email or web address] Information not available 05/24/2023 Has Tobacco Cessation Counseling Been Provided? No Not Needed-ne vesna Smoked [email or web address] Information not available 05/24/2023 Have You Recently Traveled Abroad? No [email or web address] Information not available 05/24/2023 Do You Have Any Dietary Restrictions? No [email or web address] Information not available 05/24/2023 Do You Or Have You Ever Used Any Other Forms Of Tobacco Or Nicotine? No [email or web address] Information not available 05/24/2023 Sex: Female Functional Status Question Answer Note LastModified by Organizat ion Details LastModified Time What is your exercise level? None [id number] Information not available 01/23/2023 Mental Status None recorded. Family History Relationship Description Onset Age of this Age Resolved Age Notes LastModified by Organization Details LastModified Time Mother Hypertensive disorder [id number] Not available 01/23/2023 00:52:50 Mother Pancreatitis MIGRATION.0 30 [id number] Not available 01/23/2023 00:52:51 Mother Arthritis MIGRATION.656 [id number] Not available 01/23/2023 00:52:51 Father Heart disease MIGRATION.556 [id number] Not available 01/23/2023 00:52:51 Father Aortopulmona ry window MIGRATION.474 [id number] Not available 01/23/2023 00:52:51 Father Myocardial infarction 68 MIGRATION.530 [id number] Not available 01/23/2023 00:52:51 Father Obstructive emphysema MIGRATION.023 [id number] Not available 01/23/2023 00:52:51 Father Backache with radiating pain MIGRATION.455 [id number] Not available 01/23/2023 00:52:51 Father Basal cell carcinoma of skin MIGRATION.537 [id number] Not available 01/23/2023 00:52:51 Maternal Grandmother Hypertensive disorder MIGRATION.907 [id number] Not available 01/23/2023 00:52:51 Maternal Grandmother Renal cell carcinoma deceas ed MIGRATION.382 [id number] Not available 01/23/2023 00:52:51 Paternal Grandmother Heart disease MIGRATION.608 [id number] Not available 01/23/2023 00:52:51 Paternal Grandmother Parkinson's disease deceas ed MIGRATION.030 [id number] Not available 01/23/2023 00:52:51 Sister Psoriatic arthritis with distal interphalang eal joint involvement 38 MIGRATION.672 [id number] Not available 01/23/2023 00:52:51 Maternal Grandfather Osteoarthrit is MIGRATION.107 [id number] Not available 01/23/2023 00:52:51 Maternal Grandfather Atrial fibrillation MIGRATION.000 [id number] Not available 01/23/2023 00:52:51 Maternal Grandfather Prostate finding enlarg ed prosta te MIGRATION.599 [id number] Not available 01/23/2023 00:52:51 Medical History Condition Response BLINDNESS N NERVE DISEASE N RHEUMATIC FEVER N BLADDER PROBLEMS N KIDNEY STONES N CARPAL TUNNEL SYNDROME N OTHER # 1 Y POLIO N LUNG DISEASE/DISORDER N HISTORY OF DRUG ABUSE N RADIATION / CHEMOTHERAPY N COPD N Other # 2 N BLOOD DISEASES N SURGERY N EAR OR HEARING PROBLEMS N MUMPS N PAST SPINAL SURGERY N SCHIZOPHRENIA N DEPRESSION (INCLUDING POST ) N BOWEL PROBLEMS N STROKE/TIA N LYMPHEDEMA N ULCERS N BENIGN PROSTATIC HYPERPLASIA N MEASLES N MYOCARDIAL INFARCTION N PARAPELGIA N OBESITY Y GERD/NAUSEA N ANEURYSM N URINARY/BLADDER/KIDNEY PROBLEMS N CORONARY ARTERY DISEASE (CAD) N ADDICTION CONCERNS N ENDOMETRIOSIS N Impotence N USE OF BLOOD THINNERS N SKIN PROBLEMS Y EMPHYSEMA N PERIPHERAL VASCULAR DISEASE N MUSCLE,JOINT OR BONE PROBLEMS N STOMACH ULCERS N GASTROINTESTINAL BLEEDING N BLOOD CLOTS N PAST HISTORY OF VEHICULAR ACCIDENT N ASTHMA N CATARACTS N ERECTILE DYSFUNCTION N VARICOSITIES N GI PROBLEMS N CHF N Low Testosterone N NEUROPATHY N INFERTILITY N AIDS/HIV N CHEMOTHERAPY / RADIATION N LIVER DISEASE N MALE HYPOGONADISM N HYPERTENSION N Deficiency N TOURETTE'S N BLOOD TRANSFUSION N ANEMIA/BLOOD DISORDER N CHRONIC EAR INFECTIONS N BIPOLAR DISORDER N BRONCHITIS N OSTEOARTHRITIS N TUBERCULOSIS N GLAUCOMA N FOOT PROBLEM N HEART VALVE DISORDERS N DIVERTICULITIS N CHICKENPOX N SLEEP APNEA N ALLERGIES/HAYFEVER N INFECTIOUS DISEASE N HEART ARRHYTHMIA N PROSTATE N INSOMNIA N PAST INTERVENTIONAL PAIN MANAGEMENT HIST ORY N HIGH CHOLESTEROL / HYPERLIPIDEMIA Y RHEUMATOID ARTHRITIS N PAST MEDICATION HISTORY N HYPERTHYROIDISM N EYE PROBLEMS N NEUROLOGICAL PROBLEMS N EDEMA N CHRONIC PAIN SYNDROME N HYPOTHYROIDISM N CAROTID BLOCKAGE N CONSTIPATION N BACK / NECK PROBLEMS Y ATHEROSCLEROSIS N BURSITIS N BREAST PROBLEMS N HERNIATED DISC N DIALYSIS N ECZEMA N HISTORY WITH COMPLICATIONS WITH ANESTHES IA ? N FIBROMYALGIA N OSTEOPOROSIS N ARTHRITIS N RESPIRATORY PROBLEMS N PAST HISTORY OF FALL N PERIPHERAL NEUROPATHY N DIABETES, TYPE N BAD TEETH N ENT N HEARTBURN / REFLUX Y AFIB N AUTISM SPECTRUM DISORDER (ASD) N HEPATITIS / LIVER DISEASE N GOUT N SLEEP DISORDER N ALZHEIMER'S DISEASE N PAIN N Brain Problems N HERPES N DEMENTIA N HEADACHES/MIGRAINES N SEIZURES/EPILEPSY N VASCULAR DISEASE N PACEMAKER N Blood Disorder N DIZZINESS N HEAD TRAUMA OR INJURY N HEART DISEASE/HEART PROBLEMS N KIDNEY DISEASE N MULTIPLE SCLEROSIS N NEUROPSYCHOLOGICAL N CARDIAC ARRHYTHMIA N CANCER: SPECIFY N ANESTHESIA COMPLICATIONS N ATRIAL FIBRILLATION N Gall Stones N AUTOIMMUNE DISEASE N Gynecological History Statement/Question Response Abnormal Pap N Date of Last Pap Smear Current Control Method Tubal Ligat ion Most Recent Mammogram Date of LMP 03/16/2021 Breast Problems no Obstetrics History GPAL:G 2 P 2 0 0 2 Type Value Full Term 2 Living 2 Total 2 Immunizations Vaccine Type Date Status Note Provider Nam e and Address Organization Details Recorded Time COVID-19, mRNA, LNP-S, PF, 100 mcg/0.5mL dose or 50 mcg/0.25mL dose 1 completed Not Available [facility] 05/27/2023 06:43:44 Influenza, split virus, quadrivalent, preservative 9 completed Not Available [facility] 05/27/2023 06:43:44 Influenza, high-dose, trivalent, PF 5 completed Not Available [facility] 05/27/2023 06:43:44 COVID-19, mRNA, LNP-S, PF, 100 mcg/0.5mL dose or 50 mcg/0.25mL dose 1 completed Not Available [facility] 05/27/2023 06:43:44 COVID-19, mRNA, LNP-S, PF, 100 mcg/0.5mL dose or 50 mcg/0.25mL dose 1 completed Not Available [facility] 05/27/2023 06:43:44 Td (adult), 2 Lf tetanus toxoid, preservative free, adsorbed 2 completed Not Available [facility] 05/27/2023 06:43:44 Past Encounters Encounter ID Performer Location Encounter Start Date Encounter Closed Date Diagnosis/Indication Diagnosis SNOMED-CT Code Diagnosis ICD10 Code Diagnosis Note [id number] [facility] [place] [address] [facility] [address] [place] [address] 01/30/2021 00:00:00 01/31/2021 11:59:21 [id number] [facility] [address] [address] 04/20/2021 00:00:00 04/24/2021 22:46:08 [id number] _ATHENA_M IGRATION_ DEFAULT_1 _1 , 05/10/2021 00:00:00 05/10/2021 20:14:46 [id number] [facility] [address] [address] 08/17/2021 00:00:00 08/27/2021 22:08:11 [id number] [facility] [address], [address] [address] 09/08/2021 00:00:00 2021 14:26:57 [id number] [facility] [address] [address] 10/06/2021 00:00:00 10/07/2021 10:22:11 [id number] [facility] [address] 10/24/2021 00:00:00 10/25/2021 22:40:47 [id number] [facility] [address] 11/14/2021 00:00:00 11/14/2021 21:30:48 [id number] [facility] [address] , [address] [address] 12/21/2021 00:00:00 12/21/2021 21:51:11 [id number] [facility] [place] [address] [facility] [address] [place] [address] 03/05/2022 00:00:00 03/08/2022 09:16:44 [id number] [facility] [address] [address] 03/22/2022 00:00:00 03/24/2022 13:01:09 [id number] [facility] [place] [address] [facility] [address] [place] [address] 04/09/2022 00:00:00 04/09/2022 11:12:12 [id number] [facility] [address] [address] 05/15/2022 00:00:00 05/22/2022 08:24:28 [id number] [facility] [address] [address] 07/19/2022 00:00:00 07/30/2022 16:27:54 [id number] [facility] [address] [address] 11/13/2022 00:00:00 11/13/2022 17:17:32 [id number] Efren Klein MD [facility] [address] [address] 02/14/2023 09:51:14 02/14/2023 10:32:36 Essential hypertension 94996157 I10 Rhinitis 61525073 J00 Dyslipidemia 705535122 E 78.5 [id number] Efren Klein MD [facility] [address] [address] 05/24/2023 09:42:12 05/24/2023 11:17:07 Dyslipidemia 190390946 E78.5 Obesity 658735602 E66.9 Essential hypertension 04229926 I10 Impacted c erumen of bilateral ears 2514419946 214604 H61.23 Health Concerns Section Related Observation LastModified by Organization Detai ls LastModified Time None Recorded Concern Status LastModified by Organization Details LastModified Time None Recorded Advance Directives Directive N: Payers Encounter Date Sequence Insurance Name Policy Number Policy Gunderson Covered Member ID Gunderson Member ID Guarantor Name 02/14/2023 1 [facility] [id number] Milagros Barr [id number] 2 Milagros Barr 05/24/2023 1 [facility] [id number] Milagros Barr [id number] Milagros Barr Notes Date Note Type Note Provider Name and Address Organization Details Recorded Time 05/15/2022 text/html [facility] bypatient.Notes:Pt for fu of ureteral stone, had stent placed and fu for stone and stent removal. She is doing fine. No flank pain, dysuria or hematuria. 2nd stone, family hx negative.Stone analysis, calcium oxalate. Not Available [employer] [facility] 05/22/2022 08:24:28 11/13/2022 text/html [facility] StoneRepo rted bypatient.Notes:Pt for fu of ureteral stone, had stent placed and fu for stone and stent removal. She is doing fine. No flank pain, dysuria or hematuria. 2nd stone, family hx negative.Stone analysis, calcium oxalate.11/13/22Pt is doing fine, no flank pain, no dysuria or hematuria, KUB shows no stones. Not Available [facility] [facility] 11/13/2022 17:17:32 02/14/2023 text/html Hospitalized pancreatitis symptoms goingRhinitis bothering her Efren Klein MD [address], [place], [address], [employer] [facility] [employer] [facility] 02/14/2023 10:40:32 05/24/2023 text/html Hypertension no headache no dizzinessObesity no weight lossDyslipidemia could do better with dietLittle pain in her left ear Efren Klein MD [address], [place], [address], [employer] [facility] [employer] 05/25/2023 15:59:07 OBGyn Episode No OBEpisode recorded.
== END 2025-01-28 09:49 | disposition home or self-care (01) ==
LOC: ANHIMG 09:57
PROVIDERS: PCP Internal Medicine; Visit Provider Urology
DX: Z87.442 Personal history of urinary calculi (principal)
CPT/HCPCS: 74018